=== PATIENT | male | born 1945 | race Caucasian/White ===

== ENCOUNTER 2016-10-24 08:51 | Inpatient (IN) | payer MEDICARE, OTHER ==
--- NOTE | 2016-10-24 08:53 | HP ---
SUPERVISING PHYSICIAN: Viet Goncalves MD CHIEF COMPLAINT: Right elbow that has been tender and sore. HISTORY OF PRESENT ILLNESS: This is a 70-year-old male patient who was a direct admit from Dr. Loredo' office. He said he fell off a marissa in 1966 and broke his right elbow and a screw was placed at that time. He has had tenderness and soreness on and off in the right elbow for two years. Over the last few days, it has increased in intensity and worsened. Friday it was really bothering him and he got no sleep on Friday or Friday. He called Dr. Loredo' office and got an appointment on Friday. Prior to his appointment, he was given Tramadol for the pain. On Friday at his appointment with Dr. Loredo, he was put on Bactrim and Augmentin. It did not improve overnight. He called Dr. Loredo and saw him this morning. Dr. Loredo stated it had worsened quite a bit overnight and he called me for an admission to the hospital. PAST MEDICAL HISTORY: 1. Coronary artery disease. 2. Hyperlipidemia. 3. Hypertension. 4. Asthma as a child. 5. Mild elevation of liver function tests. 6. Gastroesophageal reflux disease. PAST SURGICAL HISTORY: 1. Coronary artery stent placement. He has had three stents in the past. 2. Hernia repair. 3. Open reduction and internal fixation of right elbow with screw placement in 1966. OUTPATIENT MEDICATIONS: Per the electronic medical record and awaiting verification. ALLERGIES: TOPROL, AMADEO INHIBITORS, CRESTOR. 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 He is . He has three children. He denies any tobacco use. He drinks wine occasionally. He denies any illicit drug use. REVIEW OF SYSTEMS: GENERAL: He complains of chills and fever over the last two to three days, but denies any fatigue or weight changes. HEENT: Denies sinus symptoms, ear pain, vision changes, or sore throat. RESPIRATORY: Denies wheezing, coughing or shortness of breath. CARDIAC: Denies chest pain, palpitations or tachycardia. GASTROINTESTINAL: Denies nausea, vomiting, diarrhea, constipation. GENITOURINARY: Denies dysuria, polyuria, or hematuria. EXTREMITIES: As per history of present illness. NEUROLOGIC: Denies headache, dizziness, or seizures. PHYSICAL EXAMINATION: VITAL SIGNS: Afebrile. Pulse 69. Blood pressure 154/79. Respiratory rate 16. O2 saturation 92% on room air. GENERAL: This is a 70-year-old, obese, male who is laying in his hospital bed. He is in no acute distress. HEENT: Normocephalic, atraumatic. Pupils are equal and reactive. Oropharynx is clear. NECK: Supple without mass. RESPIRATORY: Clear to auscultation bilaterally. CARDIAC: Regular rate and rhythm. ABDOMEN: Soft, rounded obese, nontender. Bowel sounds are positive. EXTREMITIES: No cyanosis, clubbing or edema to the bilateral lower extremities. The right elbow is erythematous, edematous and tender to palpation. Dr. Loredo marked the area of induration at his office this morning and it has slightly worsened since arriving at the hospital. The distal portion of the erythematous area has worsened by approximately 2 to 3 cm. NEUROLOGIC: Awake, alert and oriented times three. LABORATORY: WBC 10.5, hemoglobin 14.9, hematocrit 43. Sodium 136, potassium 3.9, chloride 102, carbon dioxide 26, anion gap 11.9. BUN 18, creatinine 1.2, glucose 111, serum osmolality 274.6, alkaline phosphatase 35. C-reactive protein 0.15. All other labs and films have been reviewed via the EMR. ASSESSMENT: 1. Right elbow cellulitis, failed outpatient therapy. 2. Status post open reduction and internal fixation of the right elbow in 1966 with screw placement. 3. Coronary artery disease. 4. Gastroesophageal reflux disease. 5. Hypertension. 6. Hyperlipidemia. 7. Remote history of asthma. PLAN: We will admit the patient to the hospital. I have started vancomycin per pharmacy protocol. We will also start Rocephin. I will repeat his labs in the morning. We will elevated his arm and monitor it closely. I will also do an elbow x-ray in the morning. We will re-start his home medications. I will also give him [place] for pain. I will follow the patient closely and followup as needed. Dr. Goncalves is the collaborating physician and available for consultation. #[id number] [facility]
[2016-10-24] MEDS ORDERED: ACETAMINOPHEN 325 MG TAB PO PRN (09:10)
[2016-10-24] MEDS: IV SET AND CAP CHANGE INJ INJ SCH (10:25)
[2016-10-24] MEDS ORDERED: PREGABALIN 25 MG CAP PO PRN (14:04)
[2016-10-24] MEDS ORDERED: traMADol HCL 50 MG TAB ONE (14:05)
[2016-10-24] MEDS ORDERED: HYDROCHLOROTHIAZIDE PO SCH (14:06)
[2016-10-24] MEDS ORDERED: LOSARTAN POTASSIUM PO SCH (14:06)
[2016-10-24] MEDS ORDERED: traMADol HCL 50 MG TAB PO ONE (14:10)
[2016-10-24] MEDS ORDERED: hydroCHLOROthiazide 25 MG TAB ONE (14:49)
[2016-10-24] MEDS ORDERED: LOSARTAN POTASSIUM 100 MG TAB ONE (14:49)
[2016-10-24] MEDS ORDERED: HYDROcodone 5MG/APAP 325MG 1 EA TAB ONE (14:58)
[2016-10-24] MEDS ORDERED: LOSARTAN POTASSIUM 100 MG TAB PO ONE (14:59)
[2016-10-24] MEDS ORDERED: hydroCHLOROthiazide 25 MG TAB PO ONE (15:00)
[2016-10-24] MEDS ORDERED: HYDROcodone 5MG/APAP 325MG 1 EA TAB PO ONE (15:01)
[2016-10-24] MEDS ORDERED: SODIUM CHL 0.9% 50ML MIN-BAG+ 50 ML IVPB ONE ×2 (15:35→22:34)
[2016-10-24] MEDS ORDERED: cefTRIAXone SODIUM 1 GM VIAL ONE ×2 (15:35→22:34)
[2016-10-24] MEDS: cefTRIAXone SODIUM 1 GM in SODIUM CHL 0.9% 50ML MIN-BAG+ 50 ML IVPB SCH (15:51)
[2016-10-24] MEDS ORDERED: HYDROmorphone HCL INJ 2 MG/ML VIAL IV PRN (16:12)
[2016-10-24] MEDS: SODIUM CHLORIDE 0.9% (FLUSH) 10 ML SYG IV SCH (20:38)
[2016-10-25] MEDS: PANTOPRAZOLE SODIUM IV 40 MG VIAL IV SCH (00:10)
[2016-10-25] MEDS: ENOXAPARIN SODIUM 40 MG/0.4 ML SYG SUBCU SCH (00:15)
[2016-10-25] MEDS: traMADol HCL 50 MG TAB PO PRN ×2 (03:30→23:02)
[2016-10-25] MEDS: cefTRIAXone SODIUM 1 GM in SODIUM CHL 0.9% 50ML MIN-BAG+ 50 ML IVPB SCH ×2 (03:33→15:20)
--- NOTE | 2016-10-25 07:23 | RAD ---
EXAM DESCRIPTION: Right elbow two views CLINICAL HISTORY: 70 y/o ,M, cellulitis right elbow COMPARISON: None. IMPRESSION: Screw fixation of the olecranon healed. Diffuse soft tissue edema is noted especially posteriorly along the proximal ulna consistent with the given history of cellulitis. Small overlying density consistent with a button over the upper arm. No aggressive cortical destruction. Electronically signed by: João Orellana MD 10/25/2016 07:21
[2016-10-25] MEDS ORDERED: VANCOMYCIN PER PHARMACY INJ SCH (08:30)
[2016-10-25] MEDS: LOSARTAN POTASSIUM 100 MG TAB PO SCH (08:33)
[2016-10-25] MEDS: TERAZOSIN 5 MG CAP PO SCH (08:33)
[2016-10-25] MEDS: CLOPIDOGREL 75 MG TAB PO SCH (08:34)
[2016-10-25] MEDS: SODIUM CHLORIDE 0.9% (FLUSH) 10 ML SYG IV SCH ×2 (08:34→20:39)
[2016-10-25] MEDS: hydroCHLOROthiazide 25 MG TAB PO SCH (08:34)
[2016-10-25] MEDS ORDERED: HCTZ 25 MG/TRIAMTERENE 37.5 MG 1 EA CAP PO SCH (09:00)
[2016-10-25] MEDS ORDERED: SODIUM CHLORIDE 0.9% 500ML 500 ML ONE ×2 (09:57→20:10)
[2016-10-25] MEDS ORDERED: VANCOMYCIN HCL INJ 1,000 MG VIAL IVPB ONE ×2 (09:57→20:10)
[2016-10-25] MEDS ORDERED: cefTRIAXone SODIUM 1 GM VIAL ONE ×2 (10:08→20:10)
[2016-10-25] MEDS ORDERED: SODIUM CHL 0.9% 50ML MIN-BAG+ 50 ML IVPB ONE ×2 (10:08→20:09)
[2016-10-25] MEDS: VANCOMYCIN HCL INJ 1,750 MG in SODIUM CHLORIDE 0.9% 500ML 500 ML IVPB SCH ×2 (10:28→21:50)
[2016-10-25] MEDS ORDERED: KETOROLAC TROMETHAMINE INJ 30 MG/ML VIAL IV ONE (11:38)
[2016-10-25] MEDS: ONDANSETRON INJ 4 MG/2 ML VIAL IV PRN (14:32)
[2016-10-25] MEDS ORDERED: hydroCHLOROthiazide 25 MG TAB PO ONE (14:57)
[2016-10-25] MEDS ORDERED: LOSARTAN POTASSIUM 100 MG TAB PO ONE (14:57)
--- NOTE | 2016-10-25 17:34 | PN ---
DATE: 10/25/16 SUPERVISING PHYSICIAN: Rishabh Fernandez M.D. SUBJECTIVE: The patient is resting in bed. He says the pain in his elbow has improved somewhat. He still has pain with any extension or flexion He has had some mild nausea with was treated with Zofran but no vomiting. He does remain afebrile. OBJECTIVE: VITAL SIGNS: T max 98.2, pulse 53, blood pressure 185/79, respirations 18 showing O2 sat 94% on room air at rest. I's and O's show a positive balance of 550 with 2250 in, 1700 out. Weight is 152.6 kg. CHEST: Lungs are clear to auscultation bilaterally. HEART: Regular rate and rhythm. ABDOMEN: Soft, non-tender. Positive bowel sounds. EXTREMITIES: Right elbow shows just a very small trace of erythema with markings as noted prior to admission. He does have some point tenderness over the lateral aspect of the elbow with some discomfort on flexion and extension. Elbow is still warm to touch. Lower extremities show no clubbing, cyanosis or edema. NEUROLOGIC: He is alert and oriented times three. LABORATORY: CBC on admission showed to be within normal limits . Chemistries today show sodium 134, potassium 4.2, BUN 17, creatinine 1.17, glucose 117. Liver functions show to be within normal limits. Blood cultures remain negative after 24 hours. RADIOLOGY: Per radiology on the right elbow two views shows diffuse soft tissue edema noted, especially posteriorly along the proximal ulna consistent with cellulitis. No aggressive cortical destruction is noted. ASSESSMENT: 1. Right elbow cellulitis having failed to respond to outpatient treatment plan showing improvement after starting on vancomycin and Rocephin. 2. Status post open reduction and internal fixation of the right elbow in 1966 with screw placements. 3. Coronary artery disease. 4. Gastroesophageal reflux disease. 5. Hypertension. 6. Hyperlipidemia. 7. Remote history of asthma. PLAN: Will continue with current plan of antibiotics to include Rocephin and vancomycin per Pharmacy protocol and closely monitor with repeat laboratory studies in the morning. He continues to require some pain management with [place]. I will plan to give him a little Toradol today in efforts to decrease some inflammation. Anticipate discharge probably tomorrow or Friday. Until then, will continue to monitor the patient closely and treat appropriately. #[id number] [facility]
[2016-10-25] MEDS ORDERED: MAGNESIUM HYDROXIDE 30 ML UD ONE (22:57)
[2016-10-25] MEDS ORDERED: MAGNESIUM HYDROXIDE 30 ML UD PO PRN (22:57)
[2016-10-26] MEDS: SODIUM CHLORIDE 0.9% (FLUSH) 10 ML SYG IV PRN (00:14)
[2016-10-26] MEDS: ENOXAPARIN SODIUM 40 MG/0.4 ML SYG SUBCU SCH (00:14)
[2016-10-26] MEDS: PANTOPRAZOLE SODIUM IV 40 MG VIAL IV SCH (00:14)
[2016-10-26] MEDS: ONDANSETRON INJ 4 MG/2 ML VIAL IV PRN ×4 (02:08→22:06)
[2016-10-26] MEDS: cefTRIAXone SODIUM 1 GM in SODIUM CHL 0.9% 50ML MIN-BAG+ 50 ML IVPB SCH ×2 (03:45→15:17)
[2016-10-26] MEDS: LOSARTAN POTASSIUM 100 MG TAB PO SCH (08:57)
[2016-10-26] MEDS: CLOPIDOGREL 75 MG TAB PO SCH (08:58)
[2016-10-26] MEDS: TERAZOSIN 5 MG CAP PO SCH (08:58)
[2016-10-26] MEDS: hydroCHLOROthiazide 25 MG TAB PO SCH (08:58)
[2016-10-26] MEDS: SODIUM CHLORIDE 0.9% (FLUSH) 10 ML SYG IV SCH ×2 (08:59→20:57)
[2016-10-26] MEDS ORDERED: SODIUM CHLORIDE 0.9% 500ML 500 ML ONE (09:06)
[2016-10-26] MEDS ORDERED: VANCOMYCIN HCL INJ 1,000 MG VIAL IVPB ONE ×2 (09:06→22:02)
[2016-10-26] MEDS: HCTZ 25 MG/TRIAMTERENE 37.5 MG 1 EA CAP PO SCH (09:18)
[2016-10-26] MEDS: VANCOMYCIN HCL INJ 1,750 MG in SODIUM CHLORIDE 0.9% 500ML 500 ML IVPB SCH ×2 (10:01→22:07)
[2016-10-26] MEDS ORDERED: SODIUM CHL 0.9% 50ML MIN-BAG+ 50 ML IVPB ONE ×2 (15:04→19:17)
[2016-10-26] MEDS ORDERED: cefTRIAXone SODIUM 1 GM VIAL ONE ×2 (15:04→19:17)
--- NOTE | 2016-10-26 18:43 | PN ---
DATE: 10/26/16 SUPERVISING PHYSICIAN: Rishabh Fernandez M.D. SUBJECTIVE: The patient says he feels better this morning. He does remain afebrile. He reports that he has much more range of motion this morning. He did have some nausea with his vancomycin requiring some Zofran. He was encouraged to eat adequate meals to prevent any further nausea. OBJECTIVE: VITAL SIGNS: T max 98.8, pulse 57, blood pressure 147/77, respirations 18, O2 sat 95% on room air at rest. I's and O's show a negative balance of 1290 with 1460 in, 2750 out. CHEST: Clear to auscultation bilaterally. HEART: Regular rate and rhythm. ABDOMEN: Obese but soft, non- tender. Positive bowel sounds. EXTREMITIES: No clubbing, cyanosis or edema to the lower extremities. The right upper extremity elbow shows decreased amount of edema. There is just a very small trace of erythema overlying the lateral aspect of the elbow. On palpation, the elbow is still warm to touch. The patient reports less pain with palpation and manipulation. NEUROLOGIC: He is alert and oriented times three. LABORATORY: White count today is 11.2, hemoglobin 14.1, hematocrit 41.2, platelet count 193,000. Differential shows to be within normal limits without a shift. Chemistries today show normal electrolytes with potassium 4.8, BUN 27 , creatinine 1.2, glucose 119, calcium 9.4. MICROBIOLOGY: Blood cultures remain negative at 48 hours. ASSESSMENT: 1. Right elbow cellulitis having failed to respond to outpatient treatment plan showing improvement after starting on vancomycin and Rocephin. 2. Status post open reduction and internal fixation of the right elbow in 1966 with screw placement. 3. Coronary artery disease. 4. Gastroesophageal reflux disease. 5. Hypertension. 6. Hyperlipidemia. 7. Remote history of asthma, stable. PLAN: Will continue with Rocephin and vancomycin as per Pharmacy protocol as the patient continues to show good clinical improvement. He is provided pain medicine as needed with [place]. I did give him some Toradol yesterday which did seem to help somewhat. Will continue to monitor. Will anticipate possible discharge tomorrow. Until that point, will continue to monitor the patient closely and treat appropriately. #[id number] [facility]
[2016-10-26] MEDS ORDERED: SODIUM CHLORIDE 0.9% 250ML 250 ML ONE (22:02)
[2016-10-26] MEDS ORDERED: VANCOMYCIN HCL INJ 500 MG VIAL ONE (22:02)
[2016-10-26] MEDS ORDERED: VANCOMYCIN HCL INJ 1,000 MG, VANCOMYCIN HCL INJ 500 MG in SODIUM CHLORIDE 0.9% 250ML 25... IVPB ONE (22:03)
[2016-10-27] MEDS: PANTOPRAZOLE SODIUM IV 40 MG VIAL IV SCH
[2016-10-27] MEDS: ENOXAPARIN SODIUM 40 MG/0.4 ML SYG SUBCU SCH
[2016-10-27] MEDS: SODIUM CHLORIDE 0.9% (FLUSH) 10 ML SYG IV PRN
[2016-10-27] MEDS: cefTRIAXone SODIUM 1 GM in SODIUM CHL 0.9% 50ML MIN-BAG+ 50 ML IVPB SCH (03:47)
[2016-10-27] MEDS ORDERED: VANCOMYCIN HCL INJ 500 MG VIAL ONE (08:15)
[2016-10-27] MEDS ORDERED: SODIUM CHLORIDE 0.9% 250ML 250 ML ONE (08:15)
[2016-10-27] MEDS ORDERED: VANCOMYCIN HCL INJ 1,000 MG VIAL IVPB ONE (08:16)
[2016-10-27] MEDS: CLOPIDOGREL 75 MG TAB PO SCH (08:43)
[2016-10-27] MEDS: LOSARTAN POTASSIUM 100 MG TAB PO SCH (08:43)
[2016-10-27] MEDS: TERAZOSIN 5 MG CAP PO SCH (08:43)
[2016-10-27] MEDS: hydroCHLOROthiazide 25 MG TAB PO SCH (08:43)
[2016-10-27] MEDS: HCTZ 25 MG/TRIAMTERENE 37.5 MG 1 EA CAP PO SCH (08:44)
[2016-10-27] MEDS: SODIUM CHLORIDE 0.9% (FLUSH) 10 ML SYG IV SCH (08:45)
[2016-10-27] MEDS ORDERED: VANCOMYCIN HCL INJ 1,000 MG, VANCOMYCIN HCL INJ 500 MG in SODIUM CHLORIDE 0.9% 250ML 25... IVPB SCH (10:00)
[2016-10-27] MEDS: IV SET AND CAP CHANGE INJ INJ SCH (10:00)
[2016-10-27 10:32] VITALS: BP 127/73; TEMP 98; O2SAT 92
--- NOTE | 2016-10-28 09:34 | DS ---
SUPERVISING PHYSICIAN: Viet Goncalves MD DISCHARGE DIAGNOSIS: 1. Right elbow cellulitis, failed outpatient therapy, showing improvement after starting on vancomycin and Rocephin. 2. Status post open reduction and internal fixation of the right elbow after injury in 1966 with screw placement. 3. Coronary artery disease. 4. Gastroesophageal reflux disease. 5. Hypertension. 6. Hyperlipidemia. 7. Remote history of asthma, stable. HISTORY OF PRESENT ILLNESS: Mr. Greco is a 70-year-old male patient who was a direct admit from Dr. Loredo' office. He said he fell off a marissa in 1966 and broke his right elbow and a screw was placed at that time. On the date of admission, he was noted to have some tenderness and soreness on and off in the right elbow for two years. Over the last few days, it has increased in intensity and worsened. Friday prior to admission, it was really bothering him and he got no sleep on Friday or Friday. He called Dr. Loredo' office and got an appointment on Friday. Prior to his appointment, he was given Tramadol for the pain. On Friday at his appointment with Dr. Loredo, he was put on Bactrim and Augmentin. It did not improve overnight. He called Dr. Loredo and saw him that morning. Dr. Loredo stated it had worsened quite a bit overnight and requested the patient be admitted to the hospital for parenteral antibiotic to include vancomycin. The patient was admitted to the Medical/Surgical Floor in stable condition. LABORATORY: Initial white count on admission was 10.5. It maxed out at 11.2 and normalized at time of discharge to 10.8. Hemoglobin and hematocrit were stable and at time of discharge were 13.7 and 40.2. Platelet count 182,000. Differential never showed a left shift. Chemistries on admission showed normal electrolytes. It did remain fairly within normal limits and at time of discharge, potassium 4.2, initial BUN and creatinine were 18 and 1.2. At time of discharge, were 27 and 1.7. Liver functions showed to be within normal limits. C-reactive protein on initial admission was 0.5 and normalized to 0.6 at time of discharge. Vancomycin trough on 10/26/16 was 17. MICROBIOLOGY: No specimens submitted other than blood cultures and those remained negative after 3 days. RADIOLOGY: X-ray of the right elbow was completed and per radiology interpretation showed screw fixation, healed, soft tissue edema noted especially posterior along the proximal ulna secondary to cellulitis. HOSPITAL COURSE: Mr. Greco was admitted to the hospital directly for vancomycin treatment of the cellulitis. He did well. Vancomycin level was therapeutic. On date of discharge, he had shown good improvement and was having good range of motion and no longer showing any erythema and very little pain over the elbow. PLAN: Mr. Greco was discharged on 10/27/16 to have close clinical followup with Dr. Loredo. He was to call Dr. Loredo' office on Friday to schedule followup appointment. He was instructed to take all his previous medications as scheduled and stop taking the Bactrim and Augment. He was to start doxycycline on discharge and take with food to prevent any nausea. He was instructed to take Motrin 400 mg 3 times a day for 7 days to help with pain and inflammation. He was also given Tramadol for pain if not controlled with Motrin. He was instructed to return to the hospital should he not show any improvement. At time of discharge, prescriptions included: 1. Motrin 400 mg 3 times a day, #21. 2. Tramadol 50 mg q.6h. as needed, #30. 3. Doxycycline 100 mg twice daily, #28. He was discharged in stable condition. #[id number] [facility]
== END 2016-10-27 12:15 | disposition home or self-care (01) | DRG 603 ==
LOC: MS 08:51
PROVIDERS: ADMIT Family Medicine; ATTEND Nurse Practitioner Family
DX: L03.113 Cellulitis of right upper limb (principal); Z68.41 Body mass index [BMI] 40.0-44.9, adult; I25.10 Atherosclerotic heart disease of native coronary artery without angina pectoris; K21.9 Gastro-esophageal reflux disease without esophagitis; I10 Essential (primary) hypertension; E78.5 Hyperlipidemia, unspecified; E66.9 Obesity, unspecified; Z98.890 Other specified postprocedural states; Z87.81 Personal history of (healed) traumatic fracture; Z95.5 Presence of coronary angioplasty implant and graft; Z88.8 Allergy status to other drugs, medicaments and biological substances

== ENCOUNTER → 2017-06-03 | Outpatient (CLI) | payer MEDICARE | END | disposition home or self-care (01) | LOC: GMAL 10:59 | PROVIDERS: ATTEND Family Medicine | DX: Z12.5 Encounter for screening for malignant neoplasm of prostate (principal) ==

== ENCOUNTER 2017-07-14 05:00 | Day surgery (SDC) | payer MEDICARE ==
--- NOTE | 2017-07-12 21:28 | SSS ---
CHIEF COMPLAINT: Need for screening colonoscopy. HISTORY OF PRESENT ILLNESS: Mr. Greco is a 71 year-old male who presented to my office for routine followup. It was noted that he was due for a followup colonoscopy. The risks and benefits were discussed. He was agreeable with proceeding. PAST MEDICAL HISTORY: 1. Coronary artery disease diagnosed in 1997 which he had a right coronary artery stent placed. He has a RCA dominant system. 2. Hyperlipidemia. 3. Hypertension. 4. History of elevated liver function tests both secondary to NSAIDs as well as fatty liver disease. 5. Erectile dysfunction. 6. Asthma. PAST SURGICAL HISTORY: 1. Coronary artery stent placed in August of 1998 as described above. 2. Repeat cardiac catheterization with PCI of the LAD and had a Xience stent and FARMWORKER of the distal right coronary artery/posterior AV groove artery also with a Xience stent by Dr. Gaffney in May 2013. 3. Bilateral inguinal hernia repair in 1963. 4. Open reduction and internal fixation of the right elbow in 1960. 5. Colonoscopy by this physician in January 2007. CURRENT MEDICATIONS: 1. Losartan HCT. 2. Pravastatin. 3. Terazosin. 4. Triamterene HCT. 5. Aspirin. 6. Plavix. ALLERGIES: TOPROL XL WHICH CAUSES SEVERE DEPRESSION, AMADEO INHIBITORS WHICH PRODUCE COUGH AND CRESTOR WHICH PRODUCED MILD ELEVATION OF LIVER FUNCTION TESTS POSSIBLY PRODUCED ELEVATED LIVER FUNCTION TEST IN 2007. FAMILY HISTORY: Father at 53 from a myocardial infarction. Mother in her 80s secondary to multiple strokes and emphysema. He has a sister, Evi, with diabetes. SOCIAL HISTORY: He is retired. He is . 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 He has never smoked. He drinks alcohol very infrequently. REVIEW OF SYSTEMS: Negative except as per History of Present Illness. PHYSICAL EXAMINATION: VITAL SIGNS: Blood pressure 150/80, weight 317, pulse 60. GENERAL: He is awake and alert in no acute distress. HEENT: Unremarkable. NECK: Supple. CHEST: Lungs are clear. CARDIOVASCULAR: Regular rate and rhythm. ABDOMEN: With normal bowel sounds. Rectal exam is deferred until the time of colonoscopy. EXTREMITIES: Without edema. NEUROLOGIC: Nonfocal. ASSESSMENT: 1. Need for screening colonoscopy. PLAN: Colonoscopy on 07/14/17. #[id number] [facility]
[2017-07-14] MEDS ORDERED: LACTATED RINGERS 1,000 ML ONE (06:13)
[2017-07-14] MEDS ORDERED: PROPOFOL 200 MG/20 ML VIAL IV ONE (08:00)
[2017-07-14 09:23] VITALS: BP 138/76; TEMP 97.7; O2SAT 97
--- NOTE | 2017-07-14 13:30 | OP ---
DATE OF PROCEDURE: 07/11/17 PREOPERATIVE DIAGNOSIS: 1. Need for screening colonoscopy. POSTOPERATIVE DIAGNOSIS: 1. Few left sided diverticula. 2. 0.75 by 0.75 cm upper sigmoid polyp initially biopsied on the way in and subsequently removed on the way out by snare. 3. 0.25 by 0.25 cm ascending colon polyp, biopsied times two to obliteration. 4. 0.25 by 0.25 cm upper descending colon polyp, biopsied times two to obliteration. PROCEDURE: 1. Colonoscopy. SURGEON: Patrice Loredo MD. ESTIMATED BLOOD LOSS: 1 mL. COMPLICATIONS: No significant immediate complications were noted other than he did have mild regurgitation of less than 50 mL of bilious material. He was suctioned several times during this. ANESTHESIA: Propofol 510 mg administered intravenously using monitored anesthesia care with Christofer Elliott CRNA. TECHNIQUE: After informed consent was obtained from the patient, the patient was taken to the Endoscopy Suite and placed in the left lateral decubitus position. Vital signs were monitored throughout the procedure. Supplemental oxygen was administered throughout the procedure. After adequate conscious sedation was obtained, digital rectal examination was performed. Secondary to the patient's body habitus, I could feel the bottom 2/3 of the prostate. It was mildly enlarged without suspicious nodules. The colonoscope was then advanced into the patient's rectum and up into the sigmoid colon. In the proximal sigmoid colon, a polyp was noted and biopsied times one so we would be sure and be able to find it out on the way out. The colonoscope was then advanced further, all the way to the patient's cecum. The usual cecal landmarks were identified. The appendiceal orifice was photographed. The terminal ileum could not be entered, but was visualized. The colonoscope was then slowly withdrawn, taking great care to try to visualize all carranza of the colon in 360 degree fashion. In the proximal colon, bowel prep was not ideal, but it was good enough that I feel quite confident that no polyps larger than 1 cm were missed. In the ascending colon, a small 0.25 by 0.25 cm polyp was noted and biopsied times two to obliteration. The colonoscope was then withdrawn father. Again, care was taken to try to suction out as much of the stool as possible to try to increase visualization. In the upper descending colon, another small 0.25 by 0.25 cm polyp was noted and biopsied times two to obliteration. In the upper sigmoid colon, the 0.75 by 0.75 cm polyp was again noted. It was removed with a snare. Hemostasis was noted at this site as well as all the other sites that were biopsied. No further abnormalities were noted on withdrawal of the scope. In the rectum, the colonoscope was retroflexed upon itself. No significant abnormalities were noted on retroflexion. The colonoscope was then unretroflexed and air was suctioned out of the patient's rectum. The colonoscope was removed from the patient. The patient tolerated the procedure well. PLAN: The patient will followup in my office in 7 to 10 days. He will likely need another colonoscopy in 3 to 5 years, depending on the path report. #[id number] [facility]
== END 2017-07-14 09:00 | disposition home or self-care (01) ==
LOC: AMB 05:00
PROVIDERS: ATTEND Family Medicine
DX: Z12.11 Encounter for screening for malignant neoplasm of colon (principal); D12.2 Benign neoplasm of ascending colon; D12.4 Benign neoplasm of descending colon; D12.5 Benign neoplasm of sigmoid colon; K57.30 Diverticulosis of large intestine without perforation or abscess without bleeding; E78.5 Hyperlipidemia, unspecified; J45.909 Unspecified asthma, uncomplicated; I10 Essential (primary) hypertension; I25.10 Atherosclerotic heart disease of native coronary artery without angina pectoris; K21.9 Gastro-esophageal reflux disease without esophagitis; E66.9 Obesity, unspecified; Z95.5 Presence of coronary angioplasty implant and graft; G47.30 Sleep apnea, unspecified; Z88.8 Allergy status to other drugs, medicaments and biological substances; Z79.02 Long term (current) use of antithrombotics/antiplatelets; Z79.899 Other long term (current) drug therapy
CPT/HCPCS: 00810; 45380; 45385; J3490; J7120

== ENCOUNTER → 2018-01-26 | Outpatient (CLI) | payer MEDICARE | LOC: GMAL 10:48 | PROVIDERS: ATTEND Family Medicine | DX: D51.3 Other dietary vitamin B12 deficiency anemia (principal); R53.83 Other fatigue; E55.9 Vitamin D deficiency, unspecified ==

== ENCOUNTER → 2018-06-15 | Outpatient (CLI) | payer MEDICARE | LOC: GMAL 10:50 | PROVIDERS: ATTEND Family Medicine | DX: D51.3 Other dietary vitamin B12 deficiency anemia (principal); E55.9 Vitamin D deficiency, unspecified; Z12.5 Encounter for screening for malignant neoplasm of prostate | CPT/HCPCS: 82306; 82607; G0103 ==

== ENCOUNTER → 2018-10-05 | Outpatient (CLI) | payer MEDICARE | LOC: GMAL 11:33 | PROVIDERS: ATTEND Family Medicine | DX: E55.9 Vitamin D deficiency, unspecified (principal) ==

== ENCOUNTER 2020-06-26 17:52 | Inpatient (IN) | payer MEDICARE ==
[2020-06-26] MEDS ORDERED: ONDANSETRON INJ 4 MG/2 ML VIAL IV ONE (18:11)
[2020-06-26] MEDS ORDERED: SODIUM CHLORIDE 0.9% 1000ML 1,000 ML IVS ONE (18:13)
[2020-06-26] MEDS: SODIUM CHLORIDE 0.9% (FLUSH) 10 ML SYG IV PRN (18:30)
--- NOTE | 2020-06-26 18:41 | RAD ---
EXAM DESCRIPTION: Chest,1 View CLINICAL HISTORY: nausea and fatigue COMPARISON: None FINDINGS: Cardiac silhouette is within normal limits. There is atherosclerosis. There is no focal parenchymal or pleural disease. Left costophrenic angle was not completely included in the exam. There is no acute osseous process visualized. IMPRESSION: No evidence of acute cardiopulmonary disease. Electronically signed by: Keith Vazquez MD 06/26/2020 6:40 PM CDT
--- NOTE | 2020-06-26 19:27 | ED.PDOC ---
History of Present Illness - General Chief Complaint: GI Problem Stated Complaint: stomach cramps/ nausea Time Seen by Provider: 06/26/20 18:11 Source: patient, RN notes reviewed, Vital Signs reviewed Exam Limitations: no limitations - History of Present Illness Initial Comments: Patient is a 74-year-old white male who presents with complaints of 4 days of nausea secondary to eating a corn dog a dysphonic and mineral [place]. Patient has had no vomiting or diarrhea but has not improved since this started. Patient also now complains of intermittent fevers. Timing/Duration: other - 3 to 4 days Severity: moderate Improving Factors: nothing Worsening Factors: nothing Associated Symptoms: loss of appetite, nausea/vomiting - Nausea only Allergies/Adverse Reactions: Allergies AMADEO Inhibitors Adverse Reaction (Verified 06/26/20 18:34) Metoprolol [From Toprol XL] Adverse Reaction (Verified 06/26/20 18:34) Rosuvastatin [From Crestor] Adverse Reaction (Verified 06/26/20 18:34) Home Medications: Ambulatory Orders Clopidogrel Bisulfate [Plavix] 75 mg PO DAILY 10/24/16 Losartan Potassium & Hydrochlo [Losartan Potassium/Hydroc 100-25 mg] 1 tab PO BEDTIME 10/24/16 Pravastatin Sodium 80 mg PO BEDTIME 10/24/16 Terazosin HCl 10 mg PO BEDTIME 10/24/16 Triamterene & Hydrochlorothiaz [Triamterene/Hydrochloroth 37.5-25 mg] 1 tab PO BEDTIME 10/24/16 Albuterol Sulfate Nebs [Proventil Nebs] 1 neb NEB QID 06/26/20 Amlodipine Besylate 5 mg PO DAILY 06/26/20 Cholecalciferol [Vitamin D-3] 5,000 unit PO DAILY 06/26/20 Isosorbide Mononitrate [Imdur] 30 mg PO DAILY 06/26/20 Montelukast [Singulair] 1 tablet PO DAILY 06/26/20 Review of Systems - Review of Systems Constitutional: States: see HPI, fever, malaise. Denies: chills, weakness EENTM: States: no symptoms reported. Denies: eye pain, blurred vision, double vision Respiratory: States: no symptoms reported. Denies: cough, short of breath, stridor, wheezing Cardiology: States: no symptoms reported. Denies: chest pain, palpitations, syn cope Gastrointestinal/Abdominal: States: see HPI, nausea. Denies: abdominal pain, constipation, diarrhea, vomiting Genitourinary: States: no symptoms reported, discharge. Denies: dysuria, frequency Musculoskeletal: States: no symptoms reported. Denies: back pain, joint pain, neck pain Skin: States: no symptoms reported. Denies: change in color, rash Neurological: States: no symptoms reported. Denies: headache, numbness, paresthesia, tingling, tremors Endocrine: States: no symptoms reported. Denies: increased hunger, increased thirst, increased urine Hematologic/Lymphatic: States: no symptoms reported. Denies: blood clots, easy bleeding All other Systems: No Change from Baseline Past Medical History (General) - Patient Medical History Hx Seizures: No Hx Stroke: No Hx Asthma: Yes Hx of COPD: No Hx Congestive Heart Failure: No Hx Hypertension: Yes Hx Diabetes: No Hx MRSA: No - Vaccination History Hx Pneumococcal Vaccination: Yes - Social History Hx Alcohol Use: Yes - socially Hx Substance Use: No Hx Physical Abuse: No Hx Emotional Abuse: No - Activities of Daily Living Hospice Agency (if applicable):: None - Female History Patient is a Female of Child Bearing Age (10 -59 yrs old): No Family Medical History - Family History Father Living Status: Cause of : [place] Hx Cardiac Disease: Yes Mother Family History: Unknown Living Status: Physical Exam - Physical Exam General Appearance: Alert, Anxious, Obese, Well Developed, Well Groomed, Well Nourished Eye Exam: bilateral normal Ears, Nose, Throat: hearing grossly normal, normal ENT inspection, normal pharynx - except dry mucous membranes Neck: non-tender, full range of motion, supple, normal inspection Respiratory: chest non-tender, lungs clear, normal breath sounds, no respiratory distress, no accessory muscle use Cardiovascular/Chest: normal peripheral pulses, regular rate, rhythm, no edema, no gallop, no JVD, no murmur Peripheral Pulses: radial,right: 2+, radial,left: 2+ Gastrointestinal/Abdominal: normal bowel sounds, non tender, soft, no or ganomegaly, no pulsatile mass Back Exam: normal inspection, no CVA tenderness, no vertebral tenderness Extremity: normal range of motion, non-tender, normal inspection 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 06/26/20 22:41 Patient is positive for COVID-19, plan admission to the hospital. I discussed this plan of care with the patient and his and they voiced understanding and agreement. I discussed this patient with Lul Monzon NP and he accepts the patient for admission. Boris Mendoza M.D. #[id number] - Results/Orders Results/Orders: 06/26/20 18:11 Telemetry ONCE Sodium Chloride 0.9% (Flush) [Saline Flush Syringe] 3 ml IV PRN PRN 06/26/20 18:15 EKG STAT 06/26/20 21:51 Isolation:Airborne ONCE 06/26/20 22:00 Pulse Ox, Continuous Monitoring STAT 06/26/20 22:06 B-TYPE NATRIURETIC PEPTIDE/BNP Stat C-REACTIVE PROTEIN Stat CREATINE PHOSPHOKINASE Stat FERRITIN Stat LD-L/LDH Stat TROPONIN-I Stat D-DIMER,QUANTITATIVE Stat FIBRINOGEN Stat 06/27/20 09:00 Pulse Ox Daily 06/27/20 22:00 Pulse Ox, Continuous Monitoring STAT 06/28/20 22:00 Pulse Ox, Continuous Monitoring STAT Laboratory Results - last 24 hr 06/26/20 06/26/20 06/26/20 18:17 18:17 19:50 WBC 6.2 RBC 4.87 Hgb 15.8 Hct 45.0 MCV 92.2 MCH 32.5 H MCHC 35.3 RDW 13.2 Plt Count 154 MPV 8.4 Absolute Neuts (auto) 5.00 Absolute Lymphs (auto) 0.60 L Absolute Monos (auto) 0.60 Absolute Eos (auto) 0.10 Absolute Basos (auto) 0.00 Neutrophils % 79.5 H Lymphocytes % 9.0 L Monocytes % 10.2 H Eosinophils % 0.9 L Basophils % 0.4 PT 10.7 INR 1.08 PTT (SP) 29.9 Sodium 134 L Potassium 4.4 Chloride 99 L Carbon Dioxide 25 Anion Gap 14.4 BUN 24 H Creatinine 1.59 H BUN/Creatinine Ratio 15.1 Random Glucose 119 H Serum Osmolality 273.4 L Calcium 8.8 Magnesium 2.1 Total Bilirubin 0.8 Direct Bilirubin 0.1 Indirect Bilirubin 0.7 AST 48 H ALT 37 Alkaline Phosphatase 44 Creatine Kinase 600 H* CK-MB (CK-2) 5.2 H* CK-MB (CK-2) % 0.87 Troponin I 0.05 B-Natriuretic Peptide Serum Total Protein 8.0 Albumin 4.4 Lipase 43 Urine Color Yellow Urine Appearance Clear Urine pH 5.5 Ur Specific [place] 1.020 Urine Protein Negative Urine Glucose (UA) Negative Urine Ketones Negative Urine Blood Negative Urine Nitrite Negative Urine Bilirubin Negative Urine Urobilinogen 0.2 Ur Leukocyte Esterase Negative Urine RBC 0-1 Urine WBC 5-10 H Ur Epithelial Cells 0-1 Amorphous Sediment Trace Urine Bacteria Rare Urine Mucus Small 06/26/20 22:06 WBC RBC Hgb Hct MCV MCH MCHC RDW Plt Count MPV Absolute Neuts (auto) Absolute Lymphs (auto) Absolute Monos (auto) Absolute Eos (auto) Absolute Basos (auto) Neutrophils % Lymphocytes % Monocytes % Eosinophils % Basophils % PT INR PTT (SP) Sodium Potassium Chloride Carbon Dioxide Anion Gap BUN Creatinine BUN/Creatinine Ratio Random Glucose Serum Osmolality Calcium Magnesium Total Bilirubin Direct Bilirubin Indirect Bilirubin AST ALT Alkaline Phosphatase Creatine Kinase CK-MB (CK-2) CK-MB (CK-2) % Troponin I B-Natriuretic Peptide 21.9 Serum Total Protein Albumin Lipase Urine Color Urine Appearance Urine pH Ur Specific [place] Urine Protein Urine Glucose (UA) Urine Ketones Urine Blood Urine Nitrite Urine Bilirubin Urine Urobilinogen Ur Leukocyte Esterase Urine RBC Urine WBC Ur Epithelial Cells Amorphous Sediment Urine Bacteria Urine Mucus EXAM DESCRIPTION: Chest,1 View CLINICAL HISTORY: nausea and fatigue COMPARISON: None FINDINGS: Cardiac silhouette is within normal limits. There is atherosclerosis. There is no focal parenchymal or pleural disease. Left costophrenic angle was not completely included in the exam. There is no acute osseous process visualized. IMPRESSION: No evidence of acute cardiopulmonary disease. Electronically signed by: Keith Vazquez MD 06/26/2020 6:40 PM [place], nonspecific intraventricular conduction delay, borderline EKG. No comparison EKG available at this time.EKG performed 26 June 2028 718 hours: Normal sinus rhythm at 70 bpm, COVID positive Departure - Departure Clinical Impression: Hypoxemia, Renal insufficiency, mild Disposition: Discharge to Home or Self Care Departure Forms: ED Discharge - Pt. Copy, Patient Portal Self Enrollment Referrals: Patrice Loredo III, MD [Primary Care Provider] - 1-2 Weeks Home Medications: Ambulatory Orders Clopidogrel Bisulfate [Plavix] 75 mg PO DAILY 10/24/16 Losartan Potassium & Hydrochlo [Losartan Potassium/Hydroc 100-25 mg] 1 tab PO BEDTIME 10/24/16 Pravastatin Sodium 80 mg PO BEDTIME 10/24/16 Terazosin HCl 10 mg PO BEDTIME 10/24/16 Triamterene & Hydrochlorothiaz [Triamterene/Hydrochloroth 37.5-25 mg] 1 tab PO BEDTIME 10/24/16 Albuterol Sulfate Nebs [Proventil Nebs] 1 neb NEB QID 06/26/20 Amlodipine Besylate 5 mg PO DAILY 06/26/20 Cholecalciferol [Vitamin D-3] 5,000 unit PO DAILY 06/26/20 Isosorbide Mononitrate [Imdur] 30 mg PO DAILY 06/26/20 Montelukast [Singulair] 1 tablet PO DAILY 06/26/20 Decision To Admit - Decistion To Admit Decision to Admit Date: 06/26/20 Decision to Admit Time: 21:00
[2020-06-26] MEDS ORDERED: DEXAMETHASONE INJ 10 MG/ML VIAL IV ONE (21:53)
--- NOTE | 2020-06-27 00:04 | CT ---
EXAM: CTA Chest HISTORY: elevated DDimer, SOB, COVID positive COMPARISON: 06/26/2020 TECHNIQUE: Contiguous axial CTA images of the chest were obtained from the thoracic inlet to the upper abdomen after administration of intravenous contrast followed by multiplanar reformats. 3-D postprocessing was performed. This exam was performed according to our departmental dose-optimization program, which includes automated exposure control, adjustment of the mA and/or kV according to patient size and/or use of iterative reconstruction technique. FINDINGS: There is adequate opacification of the pulmonary arterial vasculature. There is no evidence of pulmonary embolus. Heart size normal. No evidence of right heart strain. No pericardial effusion. No mediastinal adenopathy. Central airways are patent. Great vessels are normal. There is reflux of gastric contents within the esophagus. Scattered bilateral nodular groundglass pulmonary opacities with peripheral distribution. No pneumothorax or pleural effusion. Limited visualization of upper abdominal contents is unremarkable for an acute process. No destructive osseous lesion. IMPRESSION: 1. No evidence of pulmonary embolus. 2. Multifocal infection, consistent with viral pneumonitis. Pattern is typical of COVID. 3. Gastric contents noted within the esophagus, with increased risk for aspiration. Electronically signed by: Demar Lopez MD 06/27/2020 12:02 AM CDT
--- NOTE | 2020-06-27 01:31 | HP ---
SUPERVISING PHYSICIAN: Dennis Melgoza M.D. CHIEF COMPLAINT: General malaise with nausea and vomiting. HISTORY OF PRESENT ILLNESS: Mr. Greco is a 74 year-old male patient that presented to the Emergency Room early last night complaining of 4 days of nausea and vomiting with some associated general malaise and what he thinks is a fever. He notes that about 4 days ago he just started feeling bad and it worsened over the weekend to the point where yesterday he was having intermittent fevers and needed to get evaluated. He says he has never actually had any emesis but had severe nausea which he initially thought was associated with some minor food poisoning. He denies any recent unplanned travel out of the state or out of the country. Denies any known contacts that were ill or positive for COVID. His workup in the Emergency Room did show that on initial testing he was positive for COVID-19. Vital signs are showing that he was satting on initial admission 94% on room air with a low-grade fever of 99.4, blood pressure 127/49. Labs were then completed and showed he had a white count of 6,600 with decreased lymphocyte count and no left shift. Coagulation studies showed he had a D-dimer of 1680 and his chemistries initially showed just a mildly low sodium at 134 with potassium 4.4, BUN 24, creatinine 1.59. Liver functions are showing slight elevation of AST at 48, otherwise within normal limits. CK was elevated at 600. Troponins were 0.05. Lipase was normal at 43. Radiology initially the chest x-ray in the Emergency Room showed no acute pulmonary disease per radiology interpretation. Given his concerning symptoms positive for COVID as well as his elevated D-dimer, a CT of his chest was completed and per radiology interpretation there were no evidence of pulmonary embolus, however there were findings consistent with opacities with similar findings in COVID infections. He was then admitted to the hospital for continuation of treatment of underlying COVID pneumonitis. PAST MEDICAL HISTORY: 1. Coronary artery disease with several stents both in 1997, 2012 and 2018. 2. Hyperlipidemia. 3. Hypertension. 4. Asthma. PAST SURGICAL HISTORY: 1. Hernia repair in 1964 bilateral. 2. Open reduction and internal fixation of right elbow in 1960. HOME MEDICATIONS: 1. Albuterol inhaler as needed. 2. Amlodipine 5 mg daily. 3. Isosorbide 30 mg daily. 4. Albuterol inhaler 1 nebulized q.i.d. 5. Singulair 1 tablet daily. 6. Losartan Hydrochlorothiazide 100/25 mg one tablet at bedtime. 7. Triamterene Hydrochlorothiazide 37.5/25 one daily. 8. Terazosin 10 mg daily. 9. Plavix 75 mg daily. 10. Vitamin D3 5,000 units daily. 11. Pravastatin 80 mg daily. ALLERGIES: AMADEO INHIBITORS, METOPROLOL AND ROSUVASTATIN. FAMILY HISTORY: Father at age 53 secondary to myocardial infarction. Mother in her early 80s secondary to multiple CVAs with a history of emphysema. He has 1 sister who is a [id number] diabetic. 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 He is . He has never smoked. He drinks alcohol very infrequently and denies any illicit drug use. REVIEW OF SYSTEMS: CONSTITUTIONAL: Positive for fever, general malaise, chills and weakness as noted in History of Present Illness. HEENT: Denies any ear aches, sore throat, nasal congestion, headaches, vision changes.Negative for sore throats, earaches, nasal congestion, vision changes. RESPIRATORY: Ongoing cough denies any actual shortness of breath or wheezing. CARDIOVASCULAR: Denies any chest pains, palpitations or syncopal episodes. Negative for chest pain, palpitations or syncopal episodes. GASTROINTESTINAL: As noted in History of Present Illness, positive for nausea. Denies any abdominal pains, constipation, diarrhea or vomiting. GENITOURINARY: Denies any dysuria, hematuria, polyuria. MUSCULOSKELETAL: Denies any back or joint pain or neck pain. SKIN: Denies any lesions, rashes, moles or unexplained changes. NEUROLOGIC: Denies any headaches, numbness, paresthesias, tingling, tremors, ataxia or other focal deficits. ENDOCRINE: Denies any increased hunger and thirst or polyuria. HEMATOLOGIC: Denies any unexplained bleeding, bruising or transfusion reactions. PHYSICAL EXAMINATION: VITAL SIGNS: On admission to the Medical/Surgical floor, temperature 99, pulse 64, blood pressure 128/58, respirations 20, satting 91% on 2 liters nasal cannula. GENERAL: On initial admission, the patient was showing to be comfortable in no acute distress. He is alert. HEENT: Tympanic membranes clear bilaterally. Oropharynx is pink, moist without any lesions. NECK: Supple, nontender with full range of motion. CHEST: Lung sounds were fairly clear, just diminished throughout more so towards the bases. No obvious rhonchi, wheezing or rales was noted. HEART: Regular rate and rhythm without any appreciable murmurs, gallops, or rubs. ABDOMEN: Soft, nontender. Positive bowel sounds. BACK: Exam without any CVA or vertebral tenderness. EXTREMITIES: Without any clubbing, cyanosis or edema. NEUROLOGIC: Cranial nerves II-XII are grossly intact. He is alert and oriented times three. SKIN: Warm, pink and dry. LABORATORY: White count 6,200 on admission initially with hemoglobin 15.8, hematocrit 45, platelet count 154,000. Differential shows an early left shift but decreased lymphocytes. Coagulation studies showed a normal PT and PTT but his D-dimer was elevated at 1680 as well as his fibrinogen at 459. Chemistry showed sodium 134, potassium 4.4, carbon dioxide is normal at 25 as well as anion gap. BUN is 24, creatinine 1.59. Liver functions were within normal limits except for a slightly elevated AST at 48 and total LDH was 184. CPK was 454, troponin 0.05, C reactive protein was 1, BNP 22, lipase 43. Urinalysis just showed 5 to 10 WBCs, no other acute findings were noted. RADIOLOGY: CT of the chest per radiology interpretation showed. Again radiology showed no evidence of pulmonary embolus. Multifocal infection was noted consistent with viral pneumonitis typical of COVID on CTA of the chest. MICROBIOLOGY: Respiratory panel did show positive for COVID but negative for other bacterial and viral targets. ASSESSMENT: 1. COVID pneumonitis. 2. History of chronic hypertension. 3. History of asthma as a child. 4. Electrolyte imbalance, including mild hyponatremia likely due to chronic condition with ongoing medications such as Hydrochlorothiazide. 5. Acute renal insufficiency with prerenal azotemia likely from diuretics. PLAN: Mr. Greco is going to be admitted for initiation of COVID pneumonitis treatment with Decadron, azithromycin and Rocephin, aggressive bronchial hygiene. He will be on breathing treatments with handheld inhaler. Will follow his labs as per protocol. He will be on DVT prophylaxis per protocol with Lovenox b.i.d. Would anticipate his length of stay to be at least 3 days if not more, but will follow his labs and should he show good clinical stability and no early signs of desaturation or increasing needs for his oxygen, will certainly discharge home and continue with outpatient management. Until then will continue to monitor and treat as needed. #[id number] [facility]
[2020-06-27] MEDS ORDERED: ACETAMINOPHEN 325 MG TAB PO PRN (01:52)
[2020-06-27] MEDS ORDERED: ONDANSETRON INJ 4 MG/2 ML VIAL IV PRN (01:52)
[2020-06-27] MEDS ORDERED: SODIUM CHLORIDE 0.9% (FLUSH) 10 ML SYG IV PRN (01:52)
[2020-06-27] MEDS ORDERED: ALBUTEROL INHALER 64 PUFF/8GM INH PRN (01:56)
[2020-06-27] MEDS ORDERED: ENOXAPARIN SODIUM 100 MG/ML SYG SUBCU SCH (02:00)
[2020-06-27] MEDS ORDERED: cefTRIAXone SODIUM 1 GM VIAL ONE (02:25)
[2020-06-27] MEDS ORDERED: AZITHROMYCIN IV 500 MG VIAL IVPB ONE (02:25)
[2020-06-27] MEDS ORDERED: SODIUM CHLORIDE 0.9% 250ML 250 ML ONE (02:26)
[2020-06-27] MEDS ORDERED: SODIUM CHLORIDE 0.9% 50ML 50 ML ONE (02:26)
[2020-06-27] MEDS: AZITHROMYCIN IV 500 MG in SODIUM CHLORIDE 0.9% 250ML 250 ML IVPB SCH (02:29)
[2020-06-27] MEDS: IV SET AND CAP CHANGE INJ INJ SCH (02:30)
[2020-06-27] MEDS: cefTRIAXone SODIUM 1 GM in SODIUM CHL 0.9% 50ML MIN-BAG+ 50 ML IVPB SCH (02:30)
[2020-06-27] MEDS: PANTOPRAZOLE SODIUM IV 40 MG VIAL IV SCH (06:11)
[2020-06-27] MEDS ORDERED: DEXAMETHASONE INJ 10 MG/ML VIAL ONE (08:20)
[2020-06-27] MEDS: BIFIDOBACTERIUM INFANTIS 4 MG CAP PO SCH (08:38)
[2020-06-27] MEDS: CLOPIDOGREL 75 MG TAB PO SCH (08:38)
[2020-06-27] MEDS: amLODIPine BESYLATE 5 MG TAB PO SCH (08:38)
[2020-06-27] MEDS: DEXAMETHASONE INJ 10 MG/ML VIAL IV SCH (08:38)
[2020-06-27] MEDS: ISOSORBIDE MONONITRATE (IMDUR) 30 MG TAB PO SCH (08:38)
[2020-06-27] MEDS: ALBUTEROL INHALER 64 PUFF/8GM INH SCH ×4 (09:10→21:30)
[2020-06-27] MEDS: MONTELUKAST 10 MG TAB PO SCH (11:49)
[2020-06-27] MEDS: ENOXAPARIN SODIUM 80 MG/0.8 ML SYG SUBCU SCH ×2 (11:49→20:53)
[2020-06-27] MEDS: ENOXAPARIN SODIUM 40 MG/0.4 ML SYG SUBCU SCH ×2 (11:50→20:53)
[2020-06-27] MEDS ORDERED: REMDESIVIR 200 MG in SODIUM CHLORIDE 0.9% 250ML 250 ML IVPB ONE (12:36)
[2020-06-27] MEDS ORDERED: PRAVASTATIN SODIUM 20 MG TAB ONE (19:07)
[2020-06-27] MEDS ORDERED: hydroCHLOROthiazide 25 MG TAB ONE (19:08)
[2020-06-27] MEDS ORDERED: LOSARTAN POTASSIUM 100 MG TAB ONE (19:08)
[2020-06-27] MEDS ORDERED: TERAZOSIN 1 MG CAP PO ONE (19:08)
[2020-06-27] MEDS ORDERED: HCTZ 25 MG/TRIAMTERENE 37.5 MG 1 EA CAP ONE (19:08)
[2020-06-27] MEDS: HCTZ 25 MG/TRIAMTERENE 37.5 MG 1 EA CAP PO SCH (20:52)
[2020-06-27] MEDS: PRAVASTATIN SODIUM 20 MG TAB PO SCH (20:52)
[2020-06-27] MEDS: hydroCHLOROthiazide 25 MG TAB PO SCH (20:52)
[2020-06-27] MEDS: LOSARTAN POTASSIUM 100 MG TAB PO SCH (20:52)
[2020-06-27] MEDS: TERAZOSIN 1 MG CAP PO SCH (20:52)
[2020-06-28] MEDS: cefTRIAXone SODIUM 1 GM in SODIUM CHL 0.9% 50ML MIN-BAG+ 50 ML IVPB SCH (01:06)
[2020-06-28] MEDS: AZITHROMYCIN IV 500 MG in SODIUM CHLORIDE 0.9% 250ML 250 ML IVPB SCH (01:44)
[2020-06-28] MEDS: PANTOPRAZOLE SODIUM IV 40 MG VIAL IV SCH (05:56)
--- NOTE | 2020-06-28 07:33 | RAD ---
EXAM DESCRIPTION: X-ray single view chest. CLINICAL HISTORY: 74 years Male, covid pneumonitis COMPARISON: Chest x-ray and chest CT performed on 06/26/2020 TECHNIQUE: Single portable x-ray view of the chest performed on 06/28/2020 at 7:10 AM FINDINGS: The lungs are relatively well expanded. There are patchy interstitial opacities bilaterally particularly in the left inferior hemithorax which may be due to pneumonia. These findings are better appreciated on the prior chest CT. There is no evidence of a pneumothorax. The cardiac silhouette is normal in size and configuration. The mediastinal contours are normal. No acute osseous abnormality is identified. No focal soft tissue abnormalities are seen. Lines and tubes: None. IMPRESSION: Patchy interstitial opacities bilaterally particularly in the left inferior hemithorax likely due to pneumonia. These findings are better appreciated on the prior chest CT. Electronically signed by: Maira Albert DO 06/28/2020 7:31 AM CDT
[2020-06-28] MEDS ORDERED: SODIUM CHLORIDE 0.9% 250ML 250 ML ONE (08:07)
[2020-06-28] MEDS: amLODIPine BESYLATE 5 MG TAB PO SCH (08:27)
[2020-06-28] MEDS: MONTELUKAST 10 MG TAB PO SCH (08:27)
[2020-06-28] MEDS: CLOPIDOGREL 75 MG TAB PO SCH (08:27)
[2020-06-28] MEDS: REMDESIVIR 100 MG in SODIUM CHLORIDE 0.9% 250ML 250 ML IVPB SCH (08:27)
[2020-06-28] MEDS: ISOSORBIDE MONONITRATE (IMDUR) 30 MG TAB PO SCH (08:27)
[2020-06-28] MEDS: BIFIDOBACTERIUM INFANTIS 4 MG CAP PO SCH (08:27)
[2020-06-28] MEDS: ENOXAPARIN SODIUM 40 MG/0.4 ML SYG SUBCU SCH ×2 (08:28→20:23)
[2020-06-28] MEDS: ENOXAPARIN SODIUM 80 MG/0.8 ML SYG SUBCU SCH ×2 (08:28→20:23)
[2020-06-28] MEDS: DEXAMETHASONE INJ 10 MG/ML VIAL IV SCH (08:28)
[2020-06-28] MEDS: ALBUTEROL INHALER 64 PUFF/8GM INH SCH ×4 (08:45→20:30)
[2020-06-28] MEDS: TERAZOSIN 1 MG CAP PO SCH (20:23)
[2020-06-28] MEDS: hydroCHLOROthiazide 25 MG TAB PO SCH (20:24)
[2020-06-28] MEDS: LOSARTAN POTASSIUM 100 MG TAB PO SCH (20:24)
[2020-06-28] MEDS: PRAVASTATIN SODIUM 20 MG TAB PO SCH (20:24)
[2020-06-28] MEDS: HCTZ 25 MG/TRIAMTERENE 37.5 MG 1 EA CAP PO SCH (20:24)
[2020-06-28] MEDS ORDERED: PREGABALIN 75 MG CAP PO SCH (21:00)
[2020-06-29] MEDS: cefTRIAXone SODIUM 1 GM in SODIUM CHL 0.9% 50ML MIN-BAG+ 50 ML IVPB SCH (00:35)
[2020-06-29] MEDS: AZITHROMYCIN IV 500 MG in SODIUM CHLORIDE 0.9% 250ML 250 ML IVPB SCH (01:29)
[2020-06-29] MEDS: PANTOPRAZOLE SODIUM IV 40 MG VIAL IV SCH (06:16)
--- NOTE | 2020-06-29 07:58 | PN ---
SUPERVISING PHYSICIAN: Alexx Melgoza MD DATE: 06/28/20 SUBJECTIVE: The patient states he doing pretty good. He is not requiring a whole lot of oxygen and is tolerating treatment without any complications. OBJECTIVE: VITAL SIGNS: Temperature 98.2, pulse 61, blood pressure 150/75, oxygen saturation 92% on 1 to 1-1/2 liters. GENERAL: The patient is resting comfortably, does not look to be in any distress. CHEST: Lung sounds are fairly clear, just a little diminished towards the bases. HEART: Regular rate and rhythm. ABDOMEN: Soft, nontender. Positive bowel sounds. EXTREMITIES: No edema. NEUROLOGIC: Alert and oriented times three. LABORATORY: White count 9,000, hemoglobin 14.2, hematocrit 39.7, platelet count 162,000, differential does continue to show a left shift. D-dimer now is down to 9.4. PTT remains elevated at 38.6. Chemistry shows normal electrolytes. Creatinine 1.18. Liver functions were within normal limits. RADIOLOGY: Chest x-ray per radiologic interpretation shows patchy interstitial opacities, bilaterally, particularly in the left inferior hemithorax, likely due to pneumonia. ASSESSMENT: 1. COVID pneumonitis. 2. Concern for developing secondary bacterial pneumonia, secondary to #1, especially left lower lung field. 3. History of chronic hypertension. 4. History of asthma as a child. 5. Electrolyte imbalance, including mild hyponatremia likely due to chronic condition with ongoing medications such as Hydrochlorothiazide. 6. Acute renal insufficiency with prerenal azotemia likely from diuretics. PLAN: We will continue current plan of care with antibiotics to include Rocephin and azithromycin as well as Decadron. We do have him on Lovenox 120 q.12h. He is on Remdesivir for a total of 5-day course. He has been doing well. He is still requiring a little bit of oxygen. He is only on day 2. I did discuss with him that given COVID has been progressing in patients of his age, even though he is showing pretty stable vitals and labs at this point, I do not anticipate we will be able to discharge at least until the weekend. I would like to see him finish out the Remdesivir and monitor him at least for the next 24 to 48 hours to ensure he is going to remain stable and not show an increasing need for FIO2. He is on Protonix for gastric protection. He has had a little bit of restless leg, so requested something for that at night, so I started him on Lyrica 75 mg at bedtime. We will need to follow and see how he tolerates this dosing. Until the patient can transition to outpatient management, we will continue to monitor and treat as needed. #[id number] [facility]
[2020-06-29] MEDS ORDERED: SODIUM CHLORIDE 0.9% 250ML 250 ML ONE (08:19)
[2020-06-29] MEDS: ALBUTEROL INHALER 64 PUFF/8GM INH SCH ×4 (08:22→21:40)
[2020-06-29] MEDS: MONTELUKAST 10 MG TAB PO SCH (08:35)
[2020-06-29] MEDS: BIFIDOBACTERIUM INFANTIS 4 MG CAP PO SCH (08:35)
[2020-06-29] MEDS: amLODIPine BESYLATE 5 MG TAB PO SCH (08:35)
[2020-06-29] MEDS: ISOSORBIDE MONONITRATE (IMDUR) 30 MG TAB PO SCH (08:35)
[2020-06-29] MEDS: DEXAMETHASONE INJ 10 MG/ML VIAL IV SCH (08:35)
[2020-06-29] MEDS: REMDESIVIR 100 MG in SODIUM CHLORIDE 0.9% 250ML 250 ML IVPB SCH (08:35)
[2020-06-29] MEDS: CLOPIDOGREL 75 MG TAB PO SCH (08:35)
[2020-06-29] MEDS: ENOXAPARIN SODIUM 80 MG/0.8 ML SYG SUBCU SCH ×2 (08:36→20:22)
[2020-06-29] MEDS: SODIUM CHLORIDE 0.9% (FLUSH) 10 ML SYG IV PRN (08:36)
[2020-06-29] MEDS: ENOXAPARIN SODIUM 40 MG/0.4 ML SYG SUBCU SCH ×2 (08:36→20:23)
--- NOTE | 2020-06-29 11:57 | PN ---
SUPERVISING PHYSICIAN: Alexx Melgoza MD DATE: 06/29/20 SUBJECTIVE: The patient is sitting up in his chair in his room. His only complaint is with the medicine he received last night because his legs were "jumping around." He received Lyrica and he said it made him quite drowsy and "out of it." Otherwise, he denies nausea, vomiting, chest pain or shortness of breath although he does feel somewhat weak. OBJECTIVE: VITAL SIGNS: Temperature 100.2, heart rate 74, blood pressure 161/72, respiratory rate 20, O2 saturation 92% on 1 liter nasal cannula. RESPIRATORY: Diminished at the bases. CARDIAC: Regular rate and rhythm. GASTROINTESTINAL: Abdomen is soft, nondistended, nontender. Bowel sounds are positive. NEUROLOGIC: Awake, alert and oriented times three. LABORATORY: WBCs 10,800, hemoglobin 14.4, hematocrit 40.9. He does have a left shift on his differential. PTT 37.3. Fibrinogen 471, D-dimer improved to 745. Sodium 134, potassium 4, chloride 98, BUN 30, creatinine 1.19. Alkaline phosphatase 37, LD 188, CK 326. All other labs and films have been reviewed via the EMR. ASSESSMENT: 1. COVID pneumonitis. 2. Concern for developing secondary bacterial pneumonia, secondary to #1, especially left lower lung field. 3. History of chronic hypertension. 4. History of asthma as a child. 5. Electrolyte imbalance, including mild hyponatremia likely due to chronic condition with ongoing medications such as Hydrochlorothiazide. 6. Acute renal insufficiency with prerenal azotemia likely from diuretics. PLAN: We will continue present supportive care including his antibiotics of Rocephin and azithromycin as well as Decadron. He continues on Lovenox 120 q.12h. Since his D-dimer is improving, we will continue him on that. He is on Remdesivir for a total of 5 day course. Clinically, he is fairly stable right now, but we will continue to monitor him closely. I have ordered lab and chest x-ray for in the morning. Hopefully, in 48 to 72 hours he can be discharged. #[id number] [facility]
[2020-06-29] MEDS ORDERED: GABAPENTIN 100 MG CAP ONE (19:15)
[2020-06-29] MEDS: hydroCHLOROthiazide 25 MG TAB PO SCH (20:22)
[2020-06-29] MEDS: HCTZ 25 MG/TRIAMTERENE 37.5 MG 1 EA CAP PO SCH (20:22)
[2020-06-29] MEDS: LOSARTAN POTASSIUM 100 MG TAB PO SCH (20:22)
[2020-06-29] MEDS: GABAPENTIN 100 MG CAP PO SCH (20:22)
[2020-06-29] MEDS: PRAVASTATIN SODIUM 20 MG TAB PO SCH (20:22)
[2020-06-29] MEDS: TERAZOSIN 1 MG CAP PO SCH (20:22)
[2020-06-30] MEDS: cefTRIAXone SODIUM 1 GM in SODIUM CHL 0.9% 50ML MIN-BAG+ 50 ML IVPB SCH (00:33)
[2020-06-30] MEDS: IV SET AND CAP CHANGE INJ INJ SCH (01:30)
[2020-06-30] MEDS: AZITHROMYCIN IV 500 MG in SODIUM CHLORIDE 0.9% 250ML 250 ML IVPB SCH (01:30)
[2020-06-30] MEDS: PANTOPRAZOLE SODIUM IV 40 MG VIAL IV SCH (06:09)
[2020-06-30] MEDS: ALBUTEROL INHALER 64 PUFF/8GM INH SCH ×4 (06:30→21:40)
[2020-06-30] MEDS ORDERED: SODIUM CHLORIDE 0.9% 250ML 250 ML IVS ONE (07:10)
[2020-06-30] MEDS ORDERED: diltiaZEM HCL TAB 30 MG TAB PO ONE (07:14)
[2020-06-30] MEDS: DEXAMETHASONE INJ 10 MG/ML VIAL IV SCH (07:17)
[2020-06-30] MEDS ORDERED: LEVALBUTEROL NEBS 1.25 MG/3 ML VIAL NEB ONE (07:52)
--- NOTE | 2020-06-30 07:57 | RAD ---
EXAM DESCRIPTION: Chest,1 View CLINICAL HISTORY: 74 years Male, covid COMPARISON: June 28, 2020 Findings: One view(s)/radiograph(s) Cardiac silhouette and pulmonary vasculature are within normal limits. No pneumothorax. No pleural effusion. Improving patchy multifocal bilateral opacities. No acute osseous abnormality. IMPRESSION: Improving patchy multifocal bilateral opacities. Electronically signed by: Barry Merchant MD 06/30/2020 7:55 AM CDT
[2020-06-30] MEDS ORDERED: POTASSIUM CHLORIDE 20 MEQ TAB PO ONE (08:22)
[2020-06-30] MEDS ORDERED: SODIUM CHLORIDE 0.9% 100ML 100 ML IVPB ONE ×2 (08:25→08:30)
[2020-06-30] MEDS ORDERED: diltiaZEM DRIP 125 MG/25 ML VIAL IVPB ONE ×2 (08:26→08:29)
[2020-06-30] MEDS: diltiaZEM DRIP 125 MG in SODIUM CHLORIDE 0.9% 100ML 100 ML IVPB SCH ×2 (08:35→18:42)
[2020-06-30] MEDS: ENOXAPARIN SODIUM 40 MG/0.4 ML SYG SUBCU SCH ×2 (09:16→20:28)
[2020-06-30] MEDS: ENOXAPARIN SODIUM 80 MG/0.8 ML SYG SUBCU SCH ×2 (09:16→20:28)
[2020-06-30] MEDS: CLOPIDOGREL 75 MG TAB PO SCH (09:17)
[2020-06-30] MEDS: amLODIPine BESYLATE 5 MG TAB PO SCH (09:17)
[2020-06-30] MEDS: BIFIDOBACTERIUM INFANTIS 4 MG CAP PO SCH (09:17)
[2020-06-30] MEDS: ISOSORBIDE MONONITRATE (IMDUR) 30 MG TAB PO SCH (09:17)
[2020-06-30] MEDS: MONTELUKAST 10 MG TAB PO SCH (09:17)
[2020-06-30] MEDS: REMDESIVIR 100 MG in SODIUM CHLORIDE 0.9% 250ML 250 ML IVPB SCH (10:10)
--- NOTE | 2020-06-30 13:26 | PN ---
SUPERVISING PHYSICIAN: Alexx Melgoza MD DATE: 06/30/20 SUBJECTIVE: I was called early this morning at approximately 6 AM. The patient went into atrial fibrillation with rapid ventricular response. He was started on a Cardizem drip. His heart rate went up as high as 130s. He continues to be in atrial fibrillation although his heart is running between 105 and 118. At this time, he is sitting up in his bed. He has no complaints of chest pain, nausea or vomiting. We discussed his lab and that he is improving. OBJECTIVE: VITAL SIGNS: Temperature 97.6, heart rate 110, blood pressure 144/82, respiratory rate 20 to 22, O2 saturation 94% on 3 liters nasal cannula. RESPIRATORY: Diminished at the bases, otherwise clear to auscultation. CARDIAC: Tachycardiac rate, irregular rhythm. Atrial fibrillation on the cardiac catheterization technologist. NEUROLOGIC: Awake, alert and oriented times three. LABORATORY: WBCs 9.2, hemoglobin 13.9, hematocrit 39.1. He does have a left shift on his differential. PTT has improved to 35.3 with D-dimer that continues to drop at 696. Sodium 134, potassium 3.5, chloride 100, minimal abdominal tenderness 1.9. Alkaline phosphatase 33, LD 188, creatinine kinase 211. Troponin 0.04. Followup troponin is 0.04. RADIOLOGY: Chest x-ray shows improving patchy multifocal bilateral opacities. All other labs and films have been reviewed via the EMR. ASSESSMENT: 1. COVID pneumonitis. He is slowly improving. 2. New onset of atrial fibrillation with rapid ventricular response. He is presently on a Cardizem drip and is also on Lovenox for anticoagulation. 3. Concern for developing secondary bacterial pneumonia, secondary to #1. 4. History of chronic hypertension. 5. History of asthma as a child. 7. Electrolyte imbalance. 8. Acute renal insufficiency with prerenal azotemia most likely from diuretics, improving. PLAN: We will continue present supportive care. Continue on the Cardizem drip. Dr. Rene, level vial inspector and tester, is supposed to be the hospital this afternoon and I will try to contact him for recommendations on his medications as he is allergic to metoprolol although the patient does not know his reaction to metoprolol other than he thinks it causes depression. I have ordered for in the morning. We will encourage good pulmonary hygiene. We will continue to monitor the patient closely and follow as needed. [facility][id number] [facility]
[2020-06-30] MEDS: diltiaZEM HCL TAB 30 MG TAB PO SCH (17:53)
[2020-06-30] MEDS: hydroCHLOROthiazide 25 MG TAB PO SCH (20:27)
[2020-06-30] MEDS: PRAVASTATIN SODIUM 20 MG TAB PO SCH (20:27)
[2020-06-30] MEDS: TERAZOSIN 1 MG CAP PO SCH (20:27)
[2020-06-30] MEDS: HCTZ 25 MG/TRIAMTERENE 37.5 MG 1 EA CAP PO SCH (20:28)
[2020-06-30] MEDS: GABAPENTIN 100 MG CAP PO SCH (20:28)
[2020-06-30] MEDS: LOSARTAN POTASSIUM 100 MG TAB PO SCH (20:28)
[2020-07-01] MEDS: diltiaZEM HCL TAB 30 MG TAB PO SCH ×4 (00:14→18:11)
[2020-07-01] MEDS: cefTRIAXone SODIUM 1 GM in SODIUM CHL 0.9% 50ML MIN-BAG+ 50 ML IVPB SCH (00:24)
[2020-07-01] MEDS: AZITHROMYCIN IV 500 MG in SODIUM CHLORIDE 0.9% 250ML 250 ML IVPB SCH (02:04)
[2020-07-01] MEDS: PANTOPRAZOLE SODIUM IV 40 MG VIAL IV SCH (06:04)
[2020-07-01] MEDS ORDERED: SODIUM CHLORIDE 0.9% 250ML 250 ML ONE (08:06)
[2020-07-01] MEDS: REMDESIVIR 100 MG in SODIUM CHLORIDE 0.9% 250ML 250 ML IVPB SCH (08:24)
[2020-07-01] MEDS: ENOXAPARIN SODIUM 80 MG/0.8 ML SYG SUBCU SCH ×2 (08:24→20:57)
[2020-07-01] MEDS: ENOXAPARIN SODIUM 40 MG/0.4 ML SYG SUBCU SCH ×2 (08:24→20:57)
[2020-07-01] MEDS: CLOPIDOGREL 75 MG TAB PO SCH (08:25)
[2020-07-01] MEDS: ISOSORBIDE MONONITRATE (IMDUR) 30 MG TAB PO SCH (08:25)
[2020-07-01] MEDS: DEXAMETHASONE INJ 10 MG/ML VIAL IV SCH (08:25)
[2020-07-01] MEDS: amLODIPine BESYLATE 5 MG TAB PO SCH (08:25)
[2020-07-01] MEDS: BIFIDOBACTERIUM INFANTIS 4 MG CAP PO SCH (08:25)
[2020-07-01] MEDS: MONTELUKAST 10 MG TAB PO SCH (08:25)
[2020-07-01] MEDS: ALBUTEROL INHALER 64 PUFF/8GM INH SCH ×4 (09:10→21:00)
[2020-07-01] MEDS: PRAVASTATIN SODIUM 20 MG TAB PO SCH (20:57)
[2020-07-01] MEDS: LOSARTAN POTASSIUM 100 MG TAB PO SCH (20:57)
[2020-07-01] MEDS: guaiFENesin ER TAB 600 MG TAB PO SCH (20:57)
[2020-07-01] MEDS: GABAPENTIN 100 MG CAP PO SCH (20:58)
[2020-07-01] MEDS: hydroCHLOROthiazide 25 MG TAB PO SCH (20:58)
[2020-07-01] MEDS: HCTZ 25 MG/TRIAMTERENE 37.5 MG 1 EA CAP PO SCH (20:59)
[2020-07-01] MEDS: TERAZOSIN 1 MG CAP PO SCH (21:09)
--- NOTE | 2020-07-01 21:58 | PN ---
SUPERVISING PHYSICIAN: Dennis Melgoza M.D. DATE: 07/01/20 SUBJECTIVE: The patient is sitting up in bed. We discussed his atrial fibrillation and the medications he would be taking for now. He is feeling somewhat better but still quite weak and short of breath with any exertion. Denies chest pain, nausea, vomiting or diarrhea. OBJECTIVE: VITAL SIGNS: Temperature 97.7, heart rate 80, blood pressure 117/61, respiratory rate 22, O2 saturation 94% on 3 liters nasal cannula. RESPIRATORY: Diminished breath sounds throughout with a few scattered rhonchi. CARDIAC: Regular rate and rhythm. NEUROLOGIC: He is awake, alert and oriented times three. LABORATORY: There are no labs or films to report today. ASSESSMENT: 1. COVID pneumonitis. He is slowly improving. 2. New onset of atrial fibrillation with rapid ventricular response. He is presently on a Cardizem drip and is also on Lovenox for anticoagulation. 3. Concern for developing secondary bacterial pneumonia, secondary to #1. 4. History of chronic hypertension. 5. History of asthma as a child. 7. Electrolyte imbalance. 8. Acute renal insufficiency with prerenal azotemia most likely from diuretics, improving. PLAN: We will continue present supportive care. I will order lab and films panels tomorrow. I will also schedule an echocardiogram for Friday. I switched him from Cardizem every 6 hours to extended release Cardizem. We will watch his heart rate closely. He will need a followup coding team lead after discharge. I spoke with his family at length about his prognosis and his plan of care. We will continue to monitor him closely and follow as needed. #[id number] [facility]
[2020-07-02] MEDS: diltiaZEM HCL TAB 30 MG TAB PO SCH ×2 (00:04→05:45)
[2020-07-02] MEDS: cefTRIAXone SODIUM 1 GM in SODIUM CHL 0.9% 50ML MIN-BAG+ 50 ML IVPB SCH (00:54)
[2020-07-02] MEDS: AZITHROMYCIN IV 500 MG in SODIUM CHLORIDE 0.9% 250ML 250 ML IVPB SCH (01:26)
[2020-07-02] MEDS: PANTOPRAZOLE SODIUM IV 40 MG VIAL IV SCH (06:08)
[2020-07-02] MEDS: ALBUTEROL INHALER 64 PUFF/8GM INH SCH ×4 (08:00→21:30)
[2020-07-02] MEDS: BIFIDOBACTERIUM INFANTIS 4 MG CAP PO SCH (08:16)
[2020-07-02] MEDS: CLOPIDOGREL 75 MG TAB PO SCH (08:16)
[2020-07-02] MEDS: MONTELUKAST 10 MG TAB PO SCH (08:16)
[2020-07-02] MEDS: ENOXAPARIN SODIUM 40 MG/0.4 ML SYG SUBCU SCH ×2 (08:16→20:58)
[2020-07-02] MEDS: amLODIPine BESYLATE 5 MG TAB PO SCH (08:16)
[2020-07-02] MEDS: ENOXAPARIN SODIUM 80 MG/0.8 ML SYG SUBCU SCH ×2 (08:16→20:58)
[2020-07-02] MEDS: ISOSORBIDE MONONITRATE (IMDUR) 30 MG TAB PO SCH (08:16)
[2020-07-02] MEDS: DEXAMETHASONE INJ 10 MG/ML VIAL IV SCH (08:17)
[2020-07-02] MEDS: guaiFENesin ER TAB 600 MG TAB PO SCH ×2 (08:18→20:57)
--- NOTE | 2020-07-02 09:04 | RAD ---
EXAM DESCRIPTION: X Ray Chest,1 View CLINICAL HISTORY: 74 years Male, covid COMPARISON: June 30, 2020. FINDINGS/IMPRESSION: 1. Cardiomediastinal silhouette is normal. 2. Patchy bilateral multifocal opacities are again noted and increased in the right lung base. 3. No pneumothorax or pleural effusion. Electronically signed by: Jason Bartlett MD 07/02/2020 9:02 AM CDT
--- NOTE | 2020-07-02 14:40 | PN ---
SUPERVISING PHYSICIAN: Dennis Melgoza M.D. DATE: 07/02/20 SUBJECTIVE: The patient is sitting up in bed eating. He continues to feel better, reported by nursing that he has had no elevated heart rate. He denies shortness of breath, nausea or vomiting or diarrhea. OBJECTIVE: VITAL SIGNS: Temperature 97.9, heart rate 73, blood pressure 131/72, respiratory rate 20, O2 saturation 94% on 3 liters nasal cannula. RESPIRATORY: Diminished at the bases. He does get slightly tachypneic with speaking, He can only speak in short phrases without getting short of breath. CARDIAC: Regular rate, irregular rhythm. NEUROLOGIC: He is awake, alert and oriented times three. LABORATORY: WBCs up to 13,300 with a hemoglobin of 14.1, hematocrit 39.8. He has a left shift on his differential. PTT is 31.6 with a fibrinogen of 491. D- dimer is 428. Aehezy128, potassium 4, chloride 103, BUN 28, creatinine 0.99, magnesium 1.9. Alkaline phosphatase 31, LD 174, creatinine kinase 140. C- reactive protein 1.1. RADIOLOGY: Chest x-ray shows: 1. Cardiomediastinal silhouette is normal. 2. Patchy bilateral multifocal opacities are again noted, increased in the right lung. 3. No pneumothorax or pleural effusion All other labs and films have been reviewed via the EMR. ASSESSMENT: 1. COVID pneumonitis. He is slowly improving. 2. New onset of atrial fibrillation with rapid ventricular response. He is presently on a Cardizem drip and is also on Lovenox for anticoagulation. 3. Concern for developing secondary bacterial pneumonia, secondary to #1. 4. History of chronic hypertension. 5. History of asthma as a child. 7. Electrolyte imbalance. 8. Acute renal insufficiency with prerenal azotemia most likely from diuretics, improving. PLAN: We will continue present supportive care. I have ordered labs for in the morning. Will hold off on a chest x-ray. We will try to wean his oxygen down but he may have to go home on oxygen. He will have an echocardiogram tomorrow. I will speak to his primary care physician, Dr. Loredo, about his irregular heart rate and to make sure he follows up with a pivot end polisher after discharge. Otherwise, we will continue to monitor him closely and follow as needed. #[id number] [facility]
[2020-07-02] MEDS ORDERED: guaiFENesin ER TAB 600 MG TAB ONE (19:52)
[2020-07-02] MEDS: GABAPENTIN 100 MG CAP PO SCH (20:56)
[2020-07-02] MEDS: TERAZOSIN 1 MG CAP PO SCH (20:57)
[2020-07-02] MEDS: hydroCHLOROthiazide 25 MG TAB PO SCH (20:57)
[2020-07-02] MEDS: PRAVASTATIN SODIUM 20 MG TAB PO SCH (20:57)
[2020-07-02] MEDS: HCTZ 25 MG/TRIAMTERENE 37.5 MG 1 EA CAP PO SCH (20:57)
[2020-07-02] MEDS: LOSARTAN POTASSIUM 100 MG TAB PO SCH (20:58)
[2020-07-03] MEDS: cefTRIAXone SODIUM 1 GM in SODIUM CHL 0.9% 50ML MIN-BAG+ 50 ML IVPB SCH (01:13)
[2020-07-03] MEDS: IV SET AND CAP CHANGE INJ INJ SCH (01:14)
[2020-07-03] MEDS: AZITHROMYCIN IV 500 MG in SODIUM CHLORIDE 0.9% 250ML 250 ML IVPB SCH (01:14)
[2020-07-03] MEDS: PANTOPRAZOLE SODIUM IV 40 MG VIAL IV SCH (06:01)
[2020-07-03] MEDS: ALBUTEROL INHALER 64 PUFF/8GM INH SCH ×2 (08:00→12:00)
[2020-07-03] MEDS ORDERED: guaiFENesin ER TAB 600 MG TAB ONE (08:20)
[2020-07-03] MEDS: amLODIPine BESYLATE 5 MG TAB PO SCH (08:51)
[2020-07-03] MEDS: BIFIDOBACTERIUM INFANTIS 4 MG CAP PO SCH (08:51)
[2020-07-03] MEDS: ENOXAPARIN SODIUM 80 MG/0.8 ML SYG SUBCU SCH (08:52)
[2020-07-03] MEDS: CLOPIDOGREL 75 MG TAB PO SCH (08:52)
[2020-07-03] MEDS: ENOXAPARIN SODIUM 40 MG/0.4 ML SYG SUBCU SCH (08:52)
[2020-07-03] MEDS: MONTELUKAST 10 MG TAB PO SCH (08:52)
[2020-07-03] MEDS: ISOSORBIDE MONONITRATE (IMDUR) 30 MG TAB PO SCH (08:52)
[2020-07-03] MEDS: guaiFENesin ER TAB 600 MG TAB PO SCH (08:52)
[2020-07-03] MEDS: DEXAMETHASONE INJ 10 MG/ML VIAL IV SCH (08:52)
[2020-07-03 13:52] VITALS: BP 123/69; TEMP 98.4; O2SAT 92
--- NOTE | 2020-07-04 08:49 | DS ---
SUPERVISING PHYSICIAN: Viet Goncalves MD ADMISSION DIAGNOSIS: 1. COVID pneumonitis. 2. History of chronic hypertension. 3. History of asthma as a child. 4. Electrolyte imbalance, including mild hyponatremia likely due to chronic condition with ongoing medications such as Hydrochlorothiazide. 5. Acute renal insufficiency with prerenal azotemia likely from diuretics. DISCHARGE DIAGNOSIS: 1. COVID pneumonitis. 2. New onset of atrial fibrillation with rapid ventricular response. He was placed on a Cardizem drip and has been converted to oral Cardizem. He was also on Lovenox for anticoagulation and will be discharged on Eliquis. 3. Concern for developing secondary bacterial pneumonia secondary to #1. 4. History of chronic hypertension. 5. History of asthma as a child. 7. Electrolyte imbalance. 8. Acute renal insufficiency with prerenal azotemia most likely from diuretics, improved. 9. Restless leg syndrome. HISTORY OF PRESENT ILLNESS: This is a 74-year-old male patient that presented to the Emergency Room complaining of 4 days of nausea and vomiting with some associated general malaise and subjective fever. About 4 days prior to coming to the ER, he just started feeling poorly and it worsened over the weekend to the point where yesterday he was having intermittent fevers and decided to come to the ER to be evaluated. There was never actually any vomiting, but he had severe nausea which he initially thought was some minor food poisoning. He denied any recent travel out of the state or out of the country. He denied any known contacts that were ill or positive for COVID. His initial workup in the Emergency Room showed he was positive for COVID-19. Vital signs are showed O2 saturation of 94% on room air with a low-grade fever of 99.4, blood pressure 127/49. Labs were then completed and showed he had a white count of 6,600 with decreased lymphocyte count and no left shift. Coagulation studies showed he had a D-dimer of 1680 and his chemistries initially showed sodium at 134 with potassium 4.4, BUN 24, creatinine 1.59. Liver functions showed slight elevation of AST at 48, otherwise within normal limits. CK was elevated at 600. Troponin were 0.05. Lipase was normal at 43. Radiology initial chest x-ray showed no acute pulmonary disease per radiology interpretation. A CT of his chest was completed and showed no evidence of pulmonary embolus, however there were findings consistent with opacities with similar findings in COVID infections. He was then admitted to the hospital for COVID pneumonitis treatment. HOSPITAL COURSE: The patient was admitted to the hospital and COVID guidelines were initiated. He was given Decadron, azithromycin and Rocephin as well as aggressive bronchial hygiene. His labs were followed per COVID protocol. He was also given DVT prophylaxis with Lovenox. At some point, he did require oxygen at 3 liters and then was actually started on Remdesivir for a 5-day course. His vital signs remained fairly stable. His lab continued to improve. At one point, he did feel like his legs were "jumping around." Initially, he received Lyrica and it made him feel quite drowsy and out of it. That was changed to gabapentin at 100 mg at h.s. and he no longer had any restless leg like symptoms. Several days into his hospital stay, his heart rate changed from sinus rhythm with atrial fibrillation with rapid ventricular response. He was actually started on a Cardizem drip. His heart rate has been up into the 130s. Once his heart rate stabilized in the 70s and 80s, he was converted to short- acting Cardizem 60 mg q.6h. He continued to be in atrial fibrillation at a controlled rate. He was on Lovenox which was sufficient for pulmonary embolus. He reported he had never had an irregular heart rate that he knew of in the past. He was allergic to metoprolol. He was converted to long-acting Cardizem 240 mg daily. This morning, he did convert to normal sinus rhythm. His laboratories have stabilized. He had an echocardiogram done this morning. He will be discharged home in stable condition. LABORATORY: Initial WBCs 6,200 and went up to 16,300. Hemoglobin and hematocrit were stable at 14.2 and 39.7. He continues to have a mild left shift on his differential. PTT 29.9 on admission and went as high as 38.6 and today is 30.9. Fibrinogen on admission was 459 and went as high as 497 and today is 484. D-dimer on admission was 1680 and went up as high at 1850. Today, it is 370. Sodium was stable, but slightly low at 134. Potassium 4, chloride 103, BUN 32, creatinine 1.06, calcium stable at 8.8 with a magnesium of 2. Ferritin on admission 206.2. AST on admission was 48 and today is 26. ALT stable at 33, alkaline phosphatase slightly low at 35. LD on admission was 184 and as high as 188 and is now 173. Creatinine kinase was 600 and has slowly improved and today is 110. Troponin is stable at 0.04. C-reactive protein went as high as 1.1 and today is 0.7. Urinalysis was unremarkable. RADIOLOGY: His final chest x-ray showed 1) Cardiomediastinal silhouette is normal. 2) Patchy bilateral multifocal opacities are again noted and increased at the right lung base. 3) No pneumothorax or pleural effusion. His echocardiogram showed 1) Normal left ventricular size and function with ejection fraction 65%. 2) Mild concentric left ventricular hypertrophy. DISCHARGE PLAN: The patient will be discharged home in stable condition. He is to resume his previous diet and increase his activity as tolerated. He is to followup with Dr. Loredo via Telehealth visit on 07/12/20 at 9:30 AM. I recommended at that time that he get a cardiology referral due to his atrial fibrillation. In addition to his routine home medications, he is to continue on diltiazem 240 mg daily, cefdinir for 7 days, dexamethasone for 4 days, Eliquis for 30 days, guaifenesin, gabapentin 100 mg at bedtime and azithromycin for 4 days. He is to followup with Dr. Loredo or return to the hospital for any problems or complications. It is also to be noted that the patient will be sent home on O2 as we were unable to wean off his oxygen. Hopefully he will be able to discontinue that within the next few weeks. DISCHARGE MEDICATIONS: 1. Plavix. 2. Terazosin. 3. Pravastatin. 4. Losartan/hydrochlorothiazide. 5. Triamterene/hydrochlorothiazide. 6. Vitamin D3. 7. Singulair. 8. Imdur. 9. Amlodipine. 10. Albuterol. 11. Align. 12. Diltiazem. 13. Cefdinir. 14. Dexamethasone. 15. Eliquis. 16. Guaifenesin. 17. Gabapentin. 18. Azithromycin. #[id number] [facility]
== END 2020-07-03 16:15 | disposition home or self-care (01) | DRG 177 ==
LOC: ER 17:52 → MS 06-27 01:30 → OBSVTOIN 06-27 01:30
PROVIDERS: ADMIT Nurse Practitioner Family; ATTEND Nurse Practitioner Acute Care
PROC: B32T1ZZ Computerized Tomography (CT Scan) of Left Pulmonary Artery using Low Osmolar Contrast (ICD-10-PCS; principal; 2020-06-26)
PROC: B32S1ZZ Computerized Tomography (CT Scan) of Right Pulmonary Artery using Low Osmolar Contrast (ICD-10-PCS; 2020-06-26)
DX: U07.1 COVID-19 (principal); J12.89 Other viral pneumonia; J15.9 Unspecified bacterial pneumonia; E87.1 Hypo-osmolality and hyponatremia; R09.02 Hypoxemia; I48.91 Unspecified atrial fibrillation; I10 Essential (primary) hypertension; N28.9 Disorder of kidney and ureter, unspecified; G25.81 Restless legs syndrome; I25.10 Atherosclerotic heart disease of native coronary artery without angina pectoris; E78.5 Hyperlipidemia, unspecified; J45.909 Unspecified asthma, uncomplicated; E66.9 Obesity, unspecified; Z95.5 Presence of coronary angioplasty implant and graft; Z79.02 Long term (current) use of antithrombotics/antiplatelets; Z88.8 Allergy status to other drugs, medicaments and biological substances; Z68.37 Body mass index [BMI] 37.0-37.9, adult; Z79.899 Other long term (current) drug therapy

== ENCOUNTER → 2020-08-14 | Outpatient (CLI) | payer MEDICARE | LOC: GMAL 11:50 | PROVIDERS: ATTEND Family Medicine | DX: D51.3 Other dietary vitamin B12 deficiency anemia (principal); D50.8 Other iron deficiency anemias; E55.9 Vitamin D deficiency, unspecified; Z12.5 Encounter for screening for malignant neoplasm of prostate; R53.83 Other fatigue; I10 Essential (primary) hypertension; R73.9 Hyperglycemia, unspecified; E78.49 Other hyperlipidemia | CPT/HCPCS: 82306; 82607; 82728; 83540; 83550; 84443; G0103 ==

== ENCOUNTER → 2020-09-11 | Outpatient (CLI) | payer MEDICARE | LOC: GMAL 10:19 | PROVIDERS: ATTEND Family Medicine | DX: R97.20 Elevated prostate specific antigen [PSA] (principal) ==

== ENCOUNTER 2020-09-28 12:54 | Emergency (ER) | payer MEDICARE ==
[2020-09-28 13:32] VITALS: TEMP 98.9
--- NOTE | 2020-09-28 14:02 | RAD ---
EXAM DESCRIPTION: Abdomen Series CLINICAL HISTORY: 74 years Male, fever, diarrhea, body aches COMPARISON: 07/02/2020 Findings: 3 view(s)/radiograph(s) Cardiac silhouette and pulmonary vasculature are within normal limits. No pneumothorax. No pleural effusion. Improved patchy multifocal bilateral airspace disease. No free air beneath the diaphragm. Nonobstructive bowel gas pattern moderate stool volume. No air-fluid level. No suspicious calcification. No acute osseous abnormality. IMPRESSION: Improved patchy multifocal bilateral airspace disease. Electronically signed by: Barry Merchant MD 09/28/2020 2:00 PM [employer]
[2020-09-28] MEDS ORDERED: SODIUM CHLORIDE 0.9% 1000ML 1,000 ML IVS ONE (14:29)
[2020-09-28] MEDS ORDERED: AMOXICILLIN & POT CLAVULANATE 875 MG TAB PO ONE (14:57)
--- NOTE | 2020-09-28 15:00 | ED.PDOC ---
History of Present Illness - General Chief Complaint: General Stated Complaint: body aches, fever and diarrhea Time Seen by Provider: 09/28/20 13:12 Source: patient Exam Limitations: no limitations - History of Present Illness Initial Comments: The patient is a 74-year-old male presenting to emergency room secondary to feeling fatigued, having fevers up to 103, generalized body aches and about 8 hours of diarrhea yesterday. No abdominal pain. No diarrhea today. No nausea or vomiting. No shortness of breath. He is not currently febrile. He has not had any Tylenol or Motrin today. No evidence of any abdominal pain to palpation. No definite history of diverticulitis. He has already had coronavirus. He is not short of breath. No chest pain. No syncope. Timing/Duration: 24 hours Severity: moderate Improving Factors: nothing Worsening Factors: nothing Associated Symptoms: fever/chills, loss of appetite, malaise Allergies/Adverse Reactions: Allergies AMADEO Inhibitors Adverse Reaction (Verified 06/26/20 18:34) Metoprolol [From Toprol XL] Adverse Reaction (Verified 06/26/20 18:34) Rosuvastatin [From Crestor] Adverse Reaction (Verified 06/26/20 18:34) Home Medications: Ambulatory Orders Clopidogrel Bisulfate [Plavix] 75 mg PO DAILY 10/24/16 Losartan Potassium & Hydrochlo [Losartan Potassium/Hydroc 100-25 mg] 1 tab PO BEDTIME 10/24/16 Pravastatin Sodium 80 mg PO BEDTIME 10/24/16 Terazosin HCl 10 mg PO BEDTIME 10/24/16 Triamterene & Hydrochlorothiaz [Triamterene/Hydrochloroth 37.5-25 mg] 1 tab PO BEDTIME 10/24/16 Albuterol Sulfate Nebs [Proventil Nebs] 1 neb NEB QID 06/26/20 Amlodipine Besylate 5 mg PO DAILY 06/26/20 Cholecalciferol [Vitamin D-3] 5,000 unit PO DAILY 06/26/20 Isosorbide Mononitrate [Imdur] 30 mg PO DAILY 06/26/20 Montelukast [Singulair] 1 tablet PO DAILY 06/26/20 Albuterol Sulfate [Albuterol Sulfate Hfa] 90 inhaler INH PRN 06/27/20 Albuterol Inhaler [Ventolin Hfa Inhaler] 2 puff INH PRN PRN inh 10/05/20 Albuterol Inhaler [Ventolin Hfa Inhaler] 2 puff INH RTQID inh 07/03/20 Apixaban [Eliquis] 5 mg PO BID #60 tab 07/03/20 Azithromycin Tab [Zithromax Tab] 250 mg PO QD #4 tab 07/03/20 Bifidobacterium Infantis [Align] 4 mg PO DAILY cap 07/03/20 Cefdinir 300 mg PO BID #14 capsule 07/03/20 Dexamethasone Tab [Decadron Tab] 4 mg PO DAILY #4 tab 07/03/20 Diltiazem HCl Coated Beads [Cardizem Cd] 240 mg PO DAILY #30 cap 07/03/20 Gabapentin [Neurontin] 100 mg PO BEDTIME #30 cap 07/03/20 guaiFENesin ER TAB [Mucinex Tab] 600 mg PO BID #60 tab 07/03/20 Amoxicillin & Pot Clavulanate [Augmentin Tab] 875 mg PO BID #14 tab 09/28/20 Review of Systems - Review of Systems Constitutional: States: malaise EENTM: States: no symptoms reported Respiratory: States: no symptoms reported Cardiology: States: no symptoms reported Gastrointestinal/Abdominal: States: diarrhea Genitourinary: States: no symptoms reported Musculoskeletal: States: other - Generalized body aches Skin: States: no symptoms reported Neurological: States: headache Endocrine: States: no symptoms reported All other Systems: No Change from Baseline Past Medical History (General) - Patient Medical History Hx Seizures: No Hx Stroke: No Hx Asthma: Yes Hx of COPD: No Hx Congestive Heart Failure: Yes Hx Pacemaker: No Hx Hypertension: Yes Hx Diabetes: No Hx Cancer: No Hx Hepatitis C: No Hx MRSA: No Surgical History: tonsillectomy - Vaccination History Hx Tetanus, Diphtheria Vaccination: No Hx Influenza Vaccination: No Hx Pneumococcal Vaccination: Yes - Social History Hx Tobacco Use: No Hx Alcohol Use: Yes - socially Hx Substance Use: No Hx Substance Use Treatment: No Hx Depression: No Hx Physical Abuse: No Hx Emotional Abuse: No Family Medical History - Family History Father Living Status: Cause of : [place] Hx Cardiac Disease: Yes Mother Family History: Unknown Living Status: Sister Hx Cardiac Disease: Yes Physical Exam - Physical Exam General Appearance: Alert, Comfortable, No apparent distress Eye Exam: bilateral normal Ears, Nose, Throat: hearing grossly normal, normal pharynx Neck: full range of motion, supple Respiratory: lungs clear, normal breath sounds, no respiratory distress, no accessory muscle use Cardiovascular/Chest: normal peripheral pulses, regular rate, rhythm, no edema Peripheral Pulses: radial,right: 2+, radial,left: 2+ Gastrointestinal/Abdominal: non tender, soft, other - Obese Rectal Exam: deferred Back Exam: no CVA tenderness, no vertebral tenderness Extremity: normal range of motion, non-tender, normal inspection, no pedal edema, normal capillary refill 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 I am uncertain if this is bacterial or viral at this point. However given the patient's history I am going to cover for the possibility of bacterial source with Augmentin for the next 5 days. He does need to eat a bland diet. He does need to keep himself well-hydrated. He was mildly dehydrated and did have a mild lactic acidosis here and received a liter of IV fluids. He does have a mildly elevated white blood cell count of 12,000. He does need to start taking a probiotic in 2 or 3 days since he is taking oral antibiotic. Laboratory work is otherwise reassuring. I want him to follow back up with his primary care doctor early next week for repeat evaluation. ER warnings are given for any significant worsening. The patient clinically does appear to be doing better today than he was yesterday based on his history. aaron hernandez [phone] - Results/Orders Results/Orders: Rapid flu is negative. Acute abdominal series appears benign. Improved chest x-ray from previous. Laboratory Tests 09/28/20 09/28/20 09/28/20 13:20 13:20 13:20 WBC 12.3 H RBC 4.28 L Hgb 13.2 L Hct 38.6 L MCV 90.1 MCH 30.8 MCHC 34.2 RDW 13.7 Plt Count 182 MPV 9.0 Absolute Neuts (auto) 9.50 H Absolute Lymphs (auto) 1.30 Absolute Monos (auto) 1.10 H Absolute Eos (auto) 0.20 Absolute Basos (auto) 0.10 Neutrophils % 77.6 Lymphocytes % 10.8 L Monocytes % 9.3 H Eosinophils % 1.5 Basophils % 0.8 Sodium 137 Potassium 3.5 L Chloride 102 Carbon Dioxide 26 Anion Gap 12.5 BUN 18 Creatinine 1.26 BUN/Creatinine Ratio 14.3 Random Glucose 122 H Serum Osmolality 277.0 Lactic Acid 2.3 H Calcium 9.1 Total Bilirubin 0.8 AST 22 ALT 20 Alkaline Phosphatase 30 L Creatine Kinase 127 CK-MB (CK-2) 2.2 CK-MB (CK-2) % Not Reportable Troponin I < 0.02 B-Natriuretic Peptide 37.1 Serum Total Protein 7.0 Albumin 3.8 Globulin 3.2 Albumin/Globulin Ratio 1.2 Amylase 58 Lipase 28 Urine Color Urine Appearance Urine pH Ur Specific [place] Urine Protein Urine Glucose (UA) Urine Ketones Urine Blood Urine Nitrite Urine Bilirubin Urine Urobilinogen Ur Leukocyte Esterase Urine RBC Urine WBC Ur Epithelial Cells Urine Bacteria Urine Mucus 09/28/20 14:30 WBC RBC Hgb Hct MCV MCH MCHC RDW Plt Count MPV Absolute Neuts (auto) Absolute Lymphs (auto) Absolute Monos (auto) Absolute Eos (auto) Absolute Basos (auto) Neutrophils % Lymphocytes % Monocytes % Eosinophils % Basophils % Sodium Potassium Chloride Carbon Dioxide Anion Gap BUN Creatinine BUN/Creatinine Ratio Random Glucose Serum Osmolality Lactic Acid Calcium Total Bilirubin AST ALT Alkaline Phosphatase Creatine Kinase CK-MB (CK-2) CK-MB (CK-2) % Troponin I B-Natriuretic Peptide Serum Total Protein Albumin Globulin Albumin/Globulin Ratio Amylase Lipase Urine Color Yellow Urine Appearance Clear Urine pH 5.5 Ur Specific [place] 1.025 Urine Protein Negative Urine Glucose (UA) Negative Urine Ketones Negative Urine Blood Negative Urine Nitrite Negative Urine Bilirubin Negative Urine Urobilinogen 0.2 Ur Leukocyte Esterase Negative Urine RBC 0-1 Urine WBC 1-3 Ur Epithelial Cells 0-1 Urine Bacteria Rare Urine Mucus Trace Departure - Departure Clinical Impression: Gastroenteritis, Lactic acidosis, Mild dehydration Disposition: Discharge to Home or Self Care Condition: Fair Departure Forms: ED Discharge - Pt. Copy, Patient Portal Self Enrollment Instructions: Bacterial Gastroenteritis, Child (DC) Diet: bland diet Activity: increase activity as tolerated Referrals: Patrice Loredo III, MD [Primary Care Provider] - 1-2 Weeks Prescriptions: Amoxicillin & Pot Clavulanate [Augmentin Tab] 875 mg PO BID #14 tab Home Medications: Ambulatory Orders Clopidogrel Bisulfate [Plavix] 75 mg PO DAILY 10/24/16 Losartan Potassium & Hydrochlo [Losartan Potassium/Hydroc 100-25 mg] 1 tab PO BEDTIME 10/24/16 Pravastatin Sodium 80 mg PO BEDTIME 10/24/16 Terazosin HCl 10 mg PO BEDTIME 10/24/16 Triamterene & Hydrochlorothiaz [Triamterene/Hydrochloroth 37.5-25 mg] 1 tab PO BEDTIME 10/24/16 Albuterol Sulfate Nebs [Proventil Nebs] 1 neb NEB QID 06/26/20 Amlodipine Besylate 5 mg PO DAILY 06/26/20 Cholecalciferol [Vitamin D-3] 5,000 unit PO DAILY 06/26/20 Isosorbide Mononitrate [Imdur] 30 mg PO DAILY 06/26/20 Montelukast [Singulair] 1 tablet PO DAILY 06/26/20 Albuterol Sulfate [Albuterol Sulfate Hfa] 90 inhaler INH PRN 06/27/20 Albuterol Inhaler [Ventolin Hfa Inhaler] 2 puff INH PRN PRN inh 07/03/20 Albuterol Inhaler [Ventolin Hfa Inhaler] 2 puff INH RTQID inh 07/03/20 Apixaban [Eliquis] 5 mg PO BID #60 tab 07/03/20 Azithromycin Tab [Zithromax Tab] 250 mg PO QD #4 tab 07/03/20 Bifidobacterium Infantis [Align] 4 mg PO DAILY cap 07/03/20 Cefdinir 300 mg PO BID #14 capsule 07/03/20 Dexamethasone Tab [Decadron Tab] 4 mg PO DAILY #4 tab 07/03/20 Diltiazem HCl Coated Beads [Cardizem Cd] 240 mg PO DAILY #30 cap 07/03/20 Gabapentin [Neurontin] 100 mg PO BEDTIME #30 cap 07/03/20 guaiFENesin ER TAB [Mucinex Tab] 600 mg PO BID #60 tab 07/03/20 Amoxicillin & Pot Clavulanate [Augmentin Tab] 875 mg PO BID #14 tab 09/28/20 Additional Instructions: The patient is a 74-year-old male presented emergency room secondary to what appears to be a gastroenteritis with associated symptoms. I am uncertain if this is bacterial or viral at this point. However given the patient's history I am going to cover for the possibility of bacterial source with Augmentin for the next 5 days. He does need to eat a bland diet. He does need to keep himself well-hydrated. He was mildly dehydrated and did have a mild lactic acidosis here and received a liter of IV fluids. He does have a mildly elevated white blood cell count of 12,000. He does need to start taking a probiotic in 2 or 3 days since he is taking oral antibiotic. Laboratory work is otherwise reassuring. I want him to follow back up with his primary care doctor early next week for repeat evaluation. ER warnings are given for any significant worsening. The patient clinically does appear to be doing better today than he was yesterday based on his history.
[2020-09-28 16:34] VITALS: BP 140/73; O2SAT 97
== END 2020-09-28 16:34 | disposition home or self-care (01) ==
LOC: ER 12:54
DX: K52.9 Noninfective gastroenteritis and colitis, unspecified (principal); E86.0 Dehydration; E87.2 Acidosis; I11.0 Hypertensive heart disease with heart failure; I50.9 Heart failure, unspecified; J45.909 Unspecified asthma, uncomplicated; Z79.899 Other long term (current) drug therapy; Z79.02 Long term (current) use of antithrombotics/antiplatelets; Z88.8 Allergy status to other drugs, medicaments and biological substances; Z86.19 Personal history of other infectious and parasitic diseases
CPT/HCPCS: 36415; 74019; 80053; 81001; 82150; 82550; 82553; 83605; 83690; 83880; 84484; 85025; 87502; J7030

== ENCOUNTER → 2020-10-09 | Outpatient (CLI) | payer MEDICARE ==
--- NOTE | 2020-10-09 13:49 | MRI ---
EXAM DESCRIPTION: Lumbar Spine w/o Contrast : Magnetic Resonance Imaging. CLINICAL HISTORY: LUMBAR RADICULOPATHY COMPARISON: MRI scan lumbar spine without contrast March 2016. TECHNIQUE: Multiplanar, multiple standard sequences, non contrast MRI, lumbar spine. FINDINGS: L5-S1: The disc is well visualized on axial T2 series 501, image 3. Minimal disc desiccation with disc space maintained and no significant bulging. Hypertrophic changes in the posterior flavum ligaments and facet joints (canal elements), more on the left. Mild canal narrowing. Moderate narrowing of the right foramen and moderate to severe narrowing left foramen. This has progressed since the prior study. L4-L5: Disc desiccation with hypointense densities in the disc representing nitrogen gas or calcifications. Trace anterolisthesis. No posterior bulging, but large left sided bulge with spur encroaching on the left foramen and abutting the left L4 nerve. Similar bulging of disc and endplate to the right but smaller. Moderate hypertrophic changes in the canal elements bilaterally more on the left. AP canal diameter 10 mm. Left foraminal stenosis and moderate to severe right foraminal narrowing. This has progressed since the prior study. L3-L4: Disc desiccation with disc space maintained. Minimal anterior bulging and endplate ridging, more to the left of midline. Hypertrophic changes in the canal elements which are impressing on the thecal sac. AP canal diameter 9 mm. Bilateral narrowing of the subarticular recesses. Moderate to severe narrowing of the left foramen and borderline to mild stenosis right foramen. Stable since the prior study. L2-L3: Disc desiccation with anterior bulging and endplate ridging. Disc spaces maintained. Posterior broad-based bulge. Minimal hypertrophic changes in the canal elements. Mild narrowing of the bilateral foramina. AP canal diameter 9.5 mm. L1-L2: Disc desiccation with minimal disc space loss. Anterior endplate reactive changes and bulging disc with endplate spurs. 3 mm grade 1 retrolisthesis. Posterior broad-based disc bulge and small midline 5 mm protrusion. This has progressed since the prior study. Bilateral narrowing of the subarticular recesses. Hypertrophic changes in the canal elements. AP canal diameter 9 mm. Bilateral foramina are patent. T12-L1: Disc desiccation. Anterior mild disc bulge and bridging osteophytes. No posterior bulge. Minimal hypertrophic changes in the canal elements. Canal and bilateral foramina are patent. Conus terminates just below the disc space. No interval change from the prior study.. No scoliosis. Paravertebral soft tissues minimal muscle atrophy. Left renal cyst.. Distal cord normal signal and caliber. Otherwise normal marrow signal in the remaining vertebral bodies and the posterior elements. Vertebral bodies are not compressed at any level. IMPRESSION: 1. Multiple levels of disc desiccation with anterior and posterior bulging and anterior endplate spur formation. Spondylolisthesis. Borderline central canal stenosis to mild central canal stenosis at multiple levels. Hypertrophic changes in the facet joints and posterior flavum ligaments. In general, progression of disease at every level since the prior study March 2016. 2. L4-L5 disc desiccation with inner gas formation and/or calcification. Borderline mild central canal stenosis is multifactorial with hypertrophic changes in the posterior flavum ligaments and facet joints. Left-sided disc spur complex encroaching on the foramen and the left L4 nerve. Moderate to severe narrowing right foramen. This has progressed since the prior study. 3. Please refer to FINDINGS for discussion of results at specific disc space levels. Electronically signed by: David Mcmanus MD 10/09/2020 1:47 PM [facility]
== END ==
LOC: MRI 07:50
PROVIDERS: ATTEND Family Medicine
DX: M51.16 Intervertebral disc disorders with radiculopathy, lumbar region (principal); M51.15 Intervertebral disc disorders with radiculopathy, thoracolumbar region; M43.16 Spondylolisthesis, lumbar region; M48.061 Spinal stenosis, lumbar region without neurogenic claudication

== ENCOUNTER 2020-11-27 10:00 | Day surgery (SDC) | payer MEDICARE ==
[2020-11-27] MEDS ORDERED: LIDOCAINE 1% 10 ML VIAL INJ ONE ×3 (11:31→11:41)
[2020-11-27] MEDS ORDERED: BUPIVACAINE 0.5% 30 ML VIAL INJ ONE ×3 (11:32→11:41)
[2020-11-27] MEDS ORDERED: BETAMETHASONE ACETATE/BETAMETH 6 MG/ML VIAL IM ONE ×2 (11:33→11:41)
== END 2020-11-27 11:58 | disposition home or self-care (01) ==
LOC: AMB 10:00
PROVIDERS: ATTEND Family Medicine Sports Medicine
DX: M54.5 Low back pain (principal); M47.896 Other spondylosis, lumbar region; E78.5 Hyperlipidemia, unspecified; I10 Essential (primary) hypertension; J45.909 Unspecified asthma, uncomplicated; I25.10 Atherosclerotic heart disease of native coronary artery without angina pectoris; Z95.5 Presence of coronary angioplasty implant and graft; Z82.49 Family history of ischemic heart disease and other diseases of the circulatory system; Z88.8 Allergy status to other drugs, medicaments and biological substances; Z79.82 Long term (current) use of aspirin; Z79.02 Long term (current) use of antithrombotics/antiplatelets; Z79.899 Other long term (current) drug therapy